=== PATIENT | female | born 1985 | race Hispanic/Latino ===

== ENCOUNTER 2017-10-10 23:58 | Emergency (ER) | payer MEDICAID, OTHER ==
[2017-10-11 00:55] LABS: APPEARANCE,URINE Turbid (CLEAR); BILIRUBIN,URINE Negative (NEGATIVE); COLOR,URINE Yellow (YELLOW); GLUCOSE, URINE (UA) Negative (NEGATIVE); HCG,QUAL RESULT NEGATIVE (NEGATIVE); KETONES,URINE Negative (NEGATIVE); LEUKOCYTE ESTERASE ,URINE Large (NEGATIVE); NITRATE,URINE Positive (NEGATIVE); OCCULT BLOOD,URINE Trace (NEGATIVE); PH,URINE 6.5 (5.0-8.0); PROTEIN,URINE Trace (NEGATIVE); UROBILINOGEN,URINE 0.2 mg/dL (0.2-1.0)
[2017-10-11] MEDS ORDERED: ACETAMINOPHEN EXTRA STRENGTH 500 MG TABLET ONE (01:08)
[2017-10-11 01:21] LABS: BACTERIA,URINE Many /HPF (None Seen); RBC,URINE None Seen /HPF (0-1); SQUAMOUS EPITHELIAL CELL,UR None Seen /LPF (0-2); WBC,URINE 26-50 /HPF (0-1)
[2017-10-11] MEDS ORDERED: IBUPROFEN 800 MG TAB ONE (01:28)
[2017-10-11] MEDS ORDERED: SODIUM CHLORIDE 0.9% 1000ML 1,000 ML IV ONE (01:29)
[2017-10-11 02:03] LABS: BASOPHILS % (AUTO) 0.7 % (0.0-5.0); EOSINOPHILS % (AUTO) 0.2 % (0.0-8.0); LYMPHOCYTES % (AUTO) 14.7 % (21.0-51.0); MEAN CORPUSCULAR HEMOGLOBIN 26.2 pg (27.0-33.0); MEAN CORPUSCULAR VOLUME 77.1 fL (79-99); NEUTROPHILS % (AUTO) 77.4 % (40.0-77.0); PLATELET COUNT (AUTO) 305 K/uL (130-400); POTASSIUM 3.6 mmol/L (3.5-5.1); RED BLOOD CELL COUNT(AUTO) 4.02 MIL/uL (4.00-5.50); RED CELL DISTRIBUTION WIDTH 16.1 % (11.0-15.5); WHITE BLOOD COUNT (AUTO) 9.9 K/uL (4.8-10.8)
== END 2017-10-11 04:19 | disposition home or self-care (01) ==
LOC: EDH 23:58
DX: J09.X2 Influenza due to identified novel influenza A virus with other respiratory manifestations (principal); N30.00 Acute cystitis without hematuria; M54.2 Cervicalgia; Z90.49 Acquired absence of other specified parts of digestive tract; Z98.890 Other specified postprocedural states; Z88.8 Allergy status to other drugs, medicaments and biological substances
CPT/HCPCS: 36415; 80048; 81001; 81025; 85025; 87088; 87186; 87804 ×2; 99284; J7030

== ENCOUNTER 2018-09-06 12:49 | Inpatient (IN) | payer MEDICAID, OTHER ==
[~2018-09-06] VITALS: Ht 157.5 cm; Wt 84.1 kg
[2018-09-06] MEDS ORDERED: ONDANSETRON ODT 4 MG TAB ONE (14:21)
[2018-09-06] MEDS ORDERED: ACETAMINOPHEN EXTRA STRENGTH 500 MG TABLET ONE (14:21)
[2018-09-06 14:32] LABS: APPEARANCE,URINE SL CLOUDY (CLEAR); BILIRUBIN,URINE NEGATIVE (NEGATIVE); COLOR,URINE YELLOW (YELLOW); GLUCOSE, URINE (UA) NEGATIVE (NEGATIVE); KETONES,URINE NEGATIVE (NEGATIVE); LEUKOCYTE ESTERASE ,URINE LARGE (NEGATIVE); NITRATE,URINE POSITIVE (NEGATIVE); OCCULT BLOOD,URINE MODERATE (NEGATIVE); PH,URINE 6.5 (5.0-8.0); PROTEIN,URINE TRACE (NEGATIVE); UROBILINOGEN,URINE 0.2 mg/dL (0.2-1.0)
[2018-09-06 14:34] LABS: HCG,QUAL RESULT NEGATIVE (NEGATIVE)
[2018-09-06 14:41] LABS: BACTERIA,URINE Few /HPF (None Seen); MUCUS,URINE Rare LPF (None Seen); SQUAMOUS EPITHELIAL CELL,UR Few /HPF (0-2); WBC,URINE 26-50 /HPF (0-1)
[2018-09-06] MEDS ORDERED: SODIUM CHLORIDE 0.9% 1000ML 3,000 ML IV ONE (14:57)
[2018-09-06] MEDS ORDERED: LEVOFLOXACIN 500 MG/D5W 100 ML 100 ML ONE (14:58)
[2018-09-06 15:01] LABS: BASOPHILS % (AUTO) 0.6 % (0.0-5.0); EOSINOPHILS % (AUTO) 0.8 % (0.0-8.0); LYMPHOCYTES % (AUTO) 9.1 % (21.0-51.0); MEAN CORPUSCULAR HEMOGLOBIN 26.4 pg (27.0-33.0); MEAN CORPUSCULAR HGB CONC 32.4 g/dL (32.0-36.0); MEAN CORPUSCULAR VOLUME 81.5 fL (79-99); MONOCYTES % (AUTO) 6.1 % (3.0-13.0); NEUTROPHILS % (AUTO) 83.4 % (40.0-77.0); PLATELET COUNT (AUTO) 352 K/uL (130-400); RED BLOOD CELL COUNT(AUTO) 4.54 MIL/uL (4.00-5.50); RED CELL DISTRIBUTION WIDTH 15.5 % (11.0-15.5)
[2018-09-06 15:14] LABS: CREATININE 0.9 mg/dL (0.5-1.5); POTASSIUM 4.1 mmol/L (3.5-5.1)
[2018-09-06 15:18] LABS: ALBUMIN 3.5 g/dL (3.5-5.0); BILIRUBIN,TOTAL 0.8 mg/dL (0.2-1.0); TOTAL PROTEIN, SERUM 8.2 g/dL (6.0-8.3)
[2018-09-06] MEDS ORDERED: OSELTAMIVIR PHOSPHATE 75 MG CAP ONE (16:49)
[2018-09-06] MEDS ORDERED: MEROPENEM 1 GM VIAL ONE (17:08)
[2018-09-06] MEDS ORDERED: SODIUM CHLORIDE 0.9% 50 ML IV ONE (17:08)
[2018-09-06] MEDS ORDERED: ONDANSETRON HCL 4 MG/2 ML VIAL IVP PRN (17:30)
[2018-09-06] MEDS ORDERED: SODIUM CHLORIDE 0.9% 1000ML 1,000 ML IV ONE (19:40)
[2018-09-06] MEDS: PHARMACY COMMUNICATION MISC SCH (21:00)
[2018-09-06] MEDS ORDERED: CEFTRIAXONE SODIUM 1 GM IVP SCH ×2 (21:00→22:00)
[2018-09-06] MEDS ORDERED: ACETAMINOPHEN 325 MG TAB ONE (21:35)
[2018-09-07] MEDS ORDERED: ACETAMINOPHEN 325 MG TAB ONE (01:13)
[2018-09-07] MEDS ORDERED: MEROPENEM 1 GM VIAL ONE (01:34)
[2018-09-07] MEDS ORDERED: SODIUM CHLORIDE 0.9% 50 ML IV ONE (01:35)
[2018-09-07 06:13] LABS: BASOPHILS % (AUTO) 0.7 % (0.0-5.0); EOSINOPHILS % (AUTO) 0.3 % (0.0-8.0); HEMATOCRIT 31.9 % (36-48); LYMPHOCYTES % (AUTO) 11.8 % (21.0-51.0); MEAN CORPUSCULAR HEMOGLOBIN 26.7 pg (27.0-33.0); MEAN CORPUSCULAR HGB CONC 32.9 g/dL (32.0-36.0); MEAN CORPUSCULAR VOLUME 81.1 fL (79-99); MONOCYTES % (AUTO) 8.4 % (3.0-13.0); NEUTROPHILS % (AUTO) 78.8 % (40.0-77.0); PLATELET COUNT (AUTO) 283 K/uL (130-400); RED BLOOD CELL COUNT(AUTO) 3.93 MIL/uL (4.00-5.50); RED CELL DISTRIBUTION WIDTH 15.1 % (11.0-15.5); WHITE BLOOD COUNT (AUTO) 11.5 K/uL (4.8-10.8)
[2018-09-07 06:22] LABS: CREATININE 0.9 mg/dL (0.5-1.5); POTASSIUM 3.3 mmol/L (3.5-5.1)
[2018-09-07 06:28] LABS: ALBUMIN 2.8 g/dL (3.5-5.0); BILIRUBIN,TOTAL 0.8 mg/dL (0.2-1.0); MAGNESIUM 1.7 mg/dL (1.80-2.40); TOTAL PROTEIN, SERUM 6.7 g/dL (6.0-8.3)
[2018-09-07] MEDS ORDERED: OSELTAMIVIR PHOSPHATE 75 MG CAP ONE (06:50)
[2018-09-07 08:00] VITALS: BP 149/74
[2018-09-07] MEDS ORDERED: DIATR MEGLU/DIATRIZOATE SODIUM 30 ML BOTTLE ONE (08:03)
[2018-09-07] MEDS: SODIUM CHLORIDE 0.9% 1000ML 1,000 ML IV SCH ×2 (10:03→21:45)
[2018-09-07] MEDS: MEROPENEM 1 GM VIAL IVP SCH ×2 (10:03→16:22)
[2018-09-07] MEDS: OSELTAMIVIR PHOSPHATE 75 MG CAP PO SCH ×2 (10:03→21:45)
[2018-09-07 11:00] VITALS: BP 142/67
[2018-09-07 16:00] VITALS: BP 126/60
[2018-09-07] MEDS: ACETAMINOPHEN 325 MG TAB PO PRN (16:23)
--- NOTE | 2018-09-07 18:18 | NUR ---
CM IA WITH PT, AAOX 3 ENG MAXIMO GONZALEZ OF [facility], KEAGAN HERNANDEZ, EMPLOYED PMD [employer] Addendum: 09/07/18 at 1819 by MATTIE ARMSTRONG RN CM Amended: Links added.
[2018-09-07 20:05] VITALS: BP 128/77
[2018-09-07] MEDS: PHARMACY COMMUNICATION MISC SCH (21:44)
[2018-09-08] VITALS: BP 149/74
[2018-09-08] MEDS: MEROPENEM 1 GM VIAL IVP SCH ×3 (00:29→23:35)
[2018-09-08] MEDS: ACETAMINOPHEN 325 MG TAB PO PRN (00:30)
[2018-09-08] MEDS: PHARMACY COMMUNICATION MISC SCH ×5 (00:33→23:00)
[2018-09-08 04:00] VITALS: BP 111/69
[2018-09-08 05:56] LABS: HEMATOCRIT 31.8 % (36-48); MEAN CORPUSCULAR HEMOGLOBIN 26.9 pg (27.0-33.0); MEAN CORPUSCULAR VOLUME 81.5 fL (79-99); NUCLEATED RED BLOOD CELLS 0.1 % (0.0-0.19); PLATELET COUNT (AUTO) 252 K/uL (130-400); RED BLOOD CELL COUNT(AUTO) 3.91 MIL/uL (4.00-5.50); RED CELL DISTRIBUTION WIDTH 15.1 % (11.0-15.5); WHITE BLOOD COUNT (AUTO) 9.2 K/uL (4.8-10.8)
[2018-09-08 08:00] VITALS: BP 119/73
[2018-09-08 13:32] VITALS: BP 143/71
[2018-09-08] MEDS: OSELTAMIVIR PHOSPHATE 75 MG CAP PO SCH ×2 (14:15→20:44)
[2018-09-08] MEDS: SODIUM CHLORIDE 0.9% 1000ML 1,000 ML IV SCH (14:15)
[2018-09-08 17:50] VITALS: BP 144/85
[2018-09-08 20:10] VITALS: BP 132/84
[2018-09-09] VITALS: BP 103/59
[2018-09-09] MEDS: SODIUM CHLORIDE 0.9% 1000ML 1,000 ML IV SCH ×2 (00:05→12:52)
[2018-09-09 04:00] VITALS: BP 116/67
[2018-09-09] MEDS: PHARMACY COMMUNICATION MISC SCH ×3 (05:00→09:00)
[2018-09-09 08:50] VITALS: BP 116/75
[2018-09-09] MEDS: MEROPENEM 1 GM VIAL IVP SCH ×2 (09:45→16:30)
[2018-09-09] MEDS: OSELTAMIVIR PHOSPHATE 75 MG CAP PO SCH (09:45)
[2018-09-09 12:14] VITALS: BP 127/89
[2018-09-09 17:02] VITALS: BP 127/76
== END 2018-09-09 19:39 | disposition home or self-care (01) | DRG 871 ==
LOC: EDH 12:49 → EDHIP 12:50 → 4BH 09-07 07:35
PROVIDERS: ADMIT Internal Medicine Infectious Disease; ATTEND Internal Medicine Infectious Disease
DX: A41.50 Gram-negative sepsis, unspecified (principal); J11.00 Influenza due to unidentified influenza virus with unspecified type of pneumonia; N13.6 Pyonephrosis; E11.9 Type 2 diabetes mellitus without complications; E66.01 Morbid (severe) obesity due to excess calories; I10 Essential (primary) hypertension; Z87.442 Personal history of urinary calculi; Z90.49 Acquired absence of other specified parts of digestive tract; Z68.33 Body mass index [BMI] 33.0-33.9, adult; Z88.1 Allergy status to other antibiotic agents; Z79.84 Long term (current) use of oral hypoglycemic drugs
CPT/HCPCS: 36415; 71045; 74177; 78700; 80053; 81001; 81025; 83605; 83735; 85025; 85027; 87040; 87804; A4218; A9562; G0378; J1956; J2185; J7030; Q9963

== ENCOUNTER 2019-05-10 09:34 | Emergency (ER) | payer SELFPAY | END 2019-05-10 10:16 | disposition home or self-care (01) | LOC: EDH 09:34 | DX: J00 Acute nasopharyngitis [common cold] (principal); Z88.1 Allergy status to other antibiotic agents | CPT/HCPCS: 99281 ==

== ENCOUNTER 2020-06-14 19:03 | Emergency (ER) | payer OTHER ==
[2020-06-14] MEDS ORDERED: ONDANSETRON HCL 4 MG/2 ML VIAL ONE (20:02)
[2020-06-14] MEDS ORDERED: KETOROLAC TROMETHAMINE 30MG/ML ONE (20:02)
[2020-06-14 20:10] LABS: APPEARANCE,URINE Cloudy (CLEAR); BILIRUBIN,URINE Negative (NEGATIVE); COLOR,URINE Yellow (YELLOW); GLUCOSE, URINE (UA) Negative (NEGATIVE); KETONES,URINE Negative (NEGATIVE); LEUKOCYTE ESTERASE ,URINE Large (NEGATIVE); NITRATE,URINE Negative (NEGATIVE); OCCULT BLOOD,URINE Moderate (NEGATIVE); PH,URINE 5.5 (5.0-8.0); PROTEIN,URINE POS 1+ mg/dL (NEGATIVE)
[2020-06-14 20:11] LABS: BASOPHILS % (AUTO) 0.2 % (0.0-5.0); EOSINOPHILS % (AUTO) 0.8 % (0.0-8.0); HEMATOCRIT 37.2 % (36-48); LYMPHOCYTES % (AUTO) 11.4 % (21.0-51.0); MEAN CORPUSCULAR HEMOGLOBIN 25.6 pg (27.0-33.0); MEAN CORPUSCULAR HGB CONC 30.9 g/dL (32.0-36.0); MEAN CORPUSCULAR VOLUME 82.9 fL (79-99); NEUTROPHILS % (AUTO) 81.3 % (40.0-77.0); PLATELET COUNT (AUTO) 384 K/uL (130-400); RED BLOOD CELL COUNT(AUTO) 4.49 MIL/uL (4.00-5.50); RED CELL DISTRIBUTION WIDTH 16.7 % (11.0-15.5); WHITE BLOOD COUNT (AUTO) 14.4 K/uL (4.8-10.8)
[2020-06-14 20:22] LABS: CREATININE 0.9 mg/dL (0.5-1.5); POTASSIUM 3.3 mmol/L (3.5-5.1)
[2020-06-14 20:26] LABS: HCG,QUAL RESULT NEGATIVE (NEGATIVE)
[2020-06-14 20:27] LABS: ALBUMIN 3.4 g/dL (3.5-5.0); BILIRUBIN,TOTAL 0.2 mg/dL (0.2-1.0)
[2020-06-14 20:33] LABS: BACTERIA,URINE Few /HPF (None Seen); RBC,URINE None Seen /HPF (0-1); WBC,URINE 51-100 /HPF (0-1)
[2020-06-14] MEDS ORDERED: CEFTRIAXONE SODIUM 1 GM ONE (21:06)
[2020-06-14] MEDS ORDERED: SULFAMETHOX-TMP DS 800/160 TAB ONE (21:24)
[2020-06-14] MEDS ORDERED: DEXAMETHASONE SOD PHOSPHATE 10MG/ML 1ML VIAL ONE (21:24)
[2020-06-15] MEDS ORDERED: ONDANSETRON HCL 4 MG/2 ML VIAL ONE (01:11)
== END 2020-06-14 22:05 | disposition home or self-care (01) ==
LOC: EDH 19:03
DX: U07.1 COVID-19 (principal); N39.0 Urinary tract infection, site not specified; M06.9 Rheumatoid arthritis, unspecified
CPT/HCPCS: 36415; 80053; 81001; 81025; 85025; 87077; 87088; 87186; 87426; 87804 ×2; 96374; 96375 ×2; 99284; J0696; J1100; J1885; J2405

== ENCOUNTER 2020-09-21 12:00 | Emergency (ER) | payer OTHER, SELFPAY ==
[2020-09-21] MEDS ORDERED: SODIUM CHLORIDE 0.9% 1000ML 1,000 ML IV ONE (12:24)
[2020-09-21] MEDS ORDERED: KETOROLAC TROMETHAMINE 30MG/ML ONE (12:26)
[2020-09-21] MEDS ORDERED: ONDANSETRON HCL 4 MG/2 ML VIAL ONE (12:26)
[2020-09-21 12:37] LABS: BASOPHILS % (AUTO) 0.4 % (0.0-5.0); EOSINOPHILS % (AUTO) 0.9 % (0.0-8.0); HEMATOCRIT 33.1 % (36-48); LYMPHOCYTES % (AUTO) 19.4 % (21.0-51.0); MEAN CORPUSCULAR HEMOGLOBIN 26.6 pg (27.0-33.0); MEAN CORPUSCULAR HGB CONC 31.4 g/dL (32.0-36.0); MEAN CORPUSCULAR VOLUME 84.7 fL (79-99); MONOCYTES % (AUTO) 7.9 % (3.0-13.0); NEUTROPHILS % (AUTO) 71.1 % (40.0-77.0); PLATELET COUNT (AUTO) 332 K/uL (130-400); RED BLOOD CELL COUNT(AUTO) 3.91 MIL/uL (4.00-5.50); RED CELL DISTRIBUTION WIDTH 17.3 % (11.0-15.5); WHITE BLOOD COUNT (AUTO) 7.8 K/uL (4.8-10.8)
[2020-09-21 12:47] LABS: HCG,QUAL RESULT NEGATIVE (NEGATIVE)
[2020-09-21 12:51] LABS: CREATININE 0.8 mg/dL (0.5-1.5); POTASSIUM 3.6 mmol/L (3.5-5.1)
[2020-09-21 12:56] LABS: ALBUMIN 3.4 g/dL (3.5-5.0); TOTAL PROTEIN, SERUM 8.1 g/dL (6.0-8.3)
[2020-09-21 12:59] LABS: APPEARANCE,URINE CLOUDY (CLEAR); BILIRUBIN,URINE NEGATIVE (NEGATIVE); COLOR,URINE YELLOW (YELLOW); GLUCOSE, URINE (UA) NEGATIVE (NEGATIVE); KETONES,URINE NEGATIVE (NEGATIVE); LEUKOCYTE ESTERASE ,URINE MODERATE (NEGATIVE); NITRATE,URINE POSITIVE (NEGATIVE); OCCULT BLOOD,URINE LARGE (NEGATIVE); PROTEIN,URINE 100 mg/dL (NEGATIVE); UROBILINOGEN,URINE 0.2 mg/dL (0.2-1.0)
[2020-09-21 13:13] LABS: WBC,URINE TNTC /HPF (0-1)
[2020-09-21 13:14] LABS: BACTERIA,URINE Many /HPF (None Seen); SQUAMOUS EPITHELIAL CELL,UR Few /HPF (0-2)
[2020-09-21] MEDS ORDERED: CEFTRIAXONE SODIUM 1 GM ONE (13:21)
[2020-09-21] MEDS ORDERED: PHENAZOPYRIDINE HCL 200 MG TABLET ONE (13:22)
[2020-09-21] MEDS ORDERED: SODIUM CHLORIDE 0.9% 100 ML IV ONE (13:57)
[2020-09-21] MEDS ORDERED: TAMSULOSIN HCL 0.4 MG CAP.ER.24H ONE (15:18)
== END 2020-09-21 15:24 | disposition home or self-care (01) ==
LOC: EDH 12:00
DX: N20.0 Calculus of kidney (principal); N30.90 Cystitis, unspecified without hematuria; M06.9 Rheumatoid arthritis, unspecified; Z98.890 Other specified postprocedural states; Z90.49 Acquired absence of other specified parts of digestive tract; Z88.1 Allergy status to other antibiotic agents
CPT/HCPCS: 36415; 74176; 80053; 81001; 81025; 83690; 84484; 85025; 87077; 87088; 87186; 96361; 96365; 96375; 99284; J0696; J1885; J2405; J7030

== ENCOUNTER 2021-02-09 16:18 | Emergency (ER) | payer OTHER ==
[~2021-02-09] VITALS: Ht 154.9 cm; Wt 117.9 kg
[2021-02-09 16:30] VITALS: BP 126/78
[2021-02-09] MEDS ORDERED: 0.9%NACL 1000ML 1,000 ML IV SCH (16:30)
[2021-02-09] MEDS ORDERED: ONDANSETRON 4MG INJ IVP ONE (16:30)
[2021-02-09 16:56] LABS: MEAN CORPUSCULAR HEMOGLOBIN 27.8 pg (27.0-33.0); MEAN CORPUSCULAR HGB CONC 31.9 g/dL (32.0-36.0); MEAN CORPUSCULAR VOLUME 87.3 fL (79-99); PLATELET COUNT (AUTO) 179 K/uL (130-400); RED BLOOD CELL COUNT(AUTO) 4.24 MIL/uL (4.00-5.50); RED CELL DISTRIBUTION WIDTH 15.2 % (11.0-15.5); WHITE BLOOD COUNT (AUTO) 8.2 K/uL (4.8-10.8)
[2021-02-09] MEDS: 0.9%NACL 1000ML 1,000 ML IV SCH ×2 (17:00→17:06)
[2021-02-09 17:10] LABS: CREATININE 0.9 mg/dL (0.5-1.5); POTASSIUM 3.6 mmol/L (3.5-5.1)
[2021-02-09 17:15] LABS: ALBUMIN 3.4 g/dL (3.5-5.0); BILIRUBIN,TOTAL 0.4 mg/dL (0.2-1.0); TOTAL PROTEIN, SERUM 7.6 g/dL (6.0-8.3)
[2021-02-09 17:40] VITALS: BP 126/84
[2021-02-09 17:45] LABS: BAND NEUTROPHILS % (MANUAL) 1 % (0-2); LYMPHOCYTES % (MANUAL) 11 % (22-44); MONOCYTES % (MANUAL) 7 % (2-9); SEGMENTED NEUTROPHILS % 81 % (40-70)
[2021-02-09 17:46] LABS: MAN.DIFF COMMENT-IMPRESSION MANUAL DIFFERENTIAL
[2021-02-09] MEDS ORDERED: ACETAMINOPHEN 500 MG TABLET ONE (17:55)
[2021-02-09] MEDS ORDERED: ONDA4TAB4 PO (18:30)
== END 2021-02-09 19:44 | disposition home or self-care (01) ==
LOC: EDH 16:18
DX: U07.1 COVID-19 (principal); R11.2 Nausea with vomiting, unspecified; M19.90 Unspecified osteoarthritis, unspecified site; Z79.899 Other long term (current) drug therapy; Z88.1 Allergy status to other antibiotic agents
CPT/HCPCS: 36415; 80053; 85025; 93005; 96361; 96374; 99284; J2405; J7030

== ENCOUNTER 2021-02-10 21:58 | Inpatient (IN) | payer OTHER ==
[~2021-02-10] VITALS: Ht 154.9 cm; Wt 122.9 kg
[~2021-02-10 21:58] MED LIST: ONDA4TAB4 PO
[2021-02-10 22:07] VITALS: BP 104/66
[2021-02-10 22:33] LABS: MEAN CORPUSCULAR HEMOGLOBIN 27.9 pg (27.0-33.0); MEAN CORPUSCULAR HGB CONC 32.4 g/dL (32.0-36.0); PLATELET COUNT (AUTO) 257 K/uL (130-400); RED CELL DISTRIBUTION WIDTH 15.1 % (11.0-15.5); WHITE BLOOD COUNT (AUTO) 4.9 K/uL (4.8-10.8)
[2021-02-10 22:52] LABS: BAND NEUTROPHILS % (MANUAL) 2 % (0-2); LYMPHOCYTES % (MANUAL) 15 % (22-44); MAN.DIFF COMMENT-IMPRESSION MANUAL DIFFERENTIAL; MONOCYTES % (MANUAL) 3 % (2-9); SEGMENTED NEUTROPHILS % 80 % (40-70)
[2021-02-10 22:53] LABS: CREATININE 0.9 mg/dL (0.5-1.5); POTASSIUM 3.4 mmol/L (3.5-5.1)
[2021-02-10 22:54] LABS: ALBUMIN 3.2 g/dL (3.5-5.0); BILIRUBIN,TOTAL 0.4 mg/dL (0.2-1.0); TOTAL PROTEIN, SERUM 7.4 g/dL (6.0-8.3)
[2021-02-10 22:55] LABS: B-TYPE NATRIURETIC PEPTIDE < 5 pg/mL (0-100)
[2021-02-10 23:13] VITALS: BP 113/78
[2021-02-10] MEDS ORDERED: 0.9% NACL 250ML IVPB ONE (23:30)
[2021-02-10] MEDS ORDERED: AZITHROMYCIN 500MG VIAL IVPB ONE (23:30)
[2021-02-10] MEDS ORDERED: DEXAMETHASONE SOD PHOSPHATE 4 MG/ML 1ML VIAL IVP ONE (23:30)
[2021-02-10] MEDS ORDERED: ALBUTEROL INHALER 90MCG/INH IH SCH (23:30)
[2021-02-11] VITALS (10 sets, daily range): BP systolic 100–142; BP diastolic 49–96
[2021-02-11] MEDS: LEVOFLOXACIN 500 MG/D5W 100 ML 100 ML IV SCH ×2 (00:09→23:51)
[2021-02-11] MEDS ORDERED: FAMOTIDINE 20MG VIAL IV ONE (01:00)
[2021-02-11 01:36] LABS: BILIRUBIN,DIRECT 0.1 mg/dL (0.0-0.3); CRP QUANTITATIVE 92.5 mg/L (0.00-9.0)
[2021-02-11] MEDS ORDERED: CEFTRIAXONE 1G VIAL ONE (02:40)
[2021-02-11 06:30] LABS: HEMATOCRIT 34.7 % (36-48); MEAN CORPUSCULAR HEMOGLOBIN 27.4 pg (27.0-33.0); MEAN CORPUSCULAR HGB CONC 32.3 g/dL (32.0-36.0); MEAN CORPUSCULAR VOLUME 84.8 fL (79-99); MONOCYTES % (AUTO) 3.9 % (3.0-13.0); NEUTROPHILS % (AUTO) 86.4 % (40.0-77.0); PLATELET COUNT (AUTO) 242 K/uL (130-400); RED BLOOD CELL COUNT(AUTO) 4.09 MIL/uL (4.00-5.50); RED CELL DISTRIBUTION WIDTH 14.9 % (11.0-15.5); WHITE BLOOD COUNT (AUTO) 4.3 K/uL (4.8-10.8)
[2021-02-11 06:53] LABS: HEMOGLOBIN A1C 5.4 % (4.0-6.0)
[2021-02-11 06:59] LABS: CREATININE 0.8 mg/dL (0.5-1.5); POTASSIUM 3.6 mmol/L (3.5-5.1)
[2021-02-11] MEDS ORDERED: CELE100C97 PO (08:05)
[2021-02-11] MEDS ORDERED: FOLI1 PO (08:05)
[2021-02-11] MEDS ORDERED: METH2.5T6 PO (08:05)
[2021-02-11] MEDS ORDERED: ENOXAPARIN SODIUM 100 MG/1 ML SQ SCH (09:00)
[2021-02-11] MEDS ORDERED: SOLU-MEDROL 40MG VIAL IVP SCH (14:30)
[2021-02-11] MEDS ORDERED: HYDR200T4 PO (15:12)
[2021-02-11] MEDS ORDERED: POTASSIUM CHLORIDE 20MEQ/100ML 100 ML IV PRN ×2 (17:00)
[2021-02-11] MEDS ORDERED: LIDOCAINE HCL-MPF 1% 2ML VIAL IV PRN (17:00)
[2021-02-11] MEDS ORDERED: GLUCAGON 1MG KIT 1 MG ML IM PRN (17:00)
[2021-02-11] MEDS ORDERED: DEXTROSE 50%-WATER 50 ML DISP.SYRIN IV PRN (17:00)
[2021-02-11] MEDS ORDERED: LIDOCAINE HCL-MPF 1% 2ML VIAL IJ PRN (17:00)
[2021-02-11] MEDS ORDERED: MAGNESIUM 2GM PREMIX 50ML 50 ML IV PRN (17:00)
[2021-02-11] MEDS ORDERED: POTASSIUM CHLORIDE 10% ELIXIR 20 MEQ/15 ML UDCUP PO PRN (17:00)
[2021-02-11] MEDS ORDERED: IOHEXOL 350 MG/ML 100ML INFUS..BTL IV ONE (18:11)
[2021-02-11] MEDS ORDERED: TOCILIZUMAB 400MG VIAL 800 MG in 0.9%NACL 100ML 60 ML IV SCH (18:30)
[2021-02-11] MEDS: OSELTAMIVIR PHOSPHATE 75 MG CAP PO SCH (20:10)
[2021-02-11] MEDS: INSULIN HUMULIN R 100 UNIT/ML 3ML SQ SCH (20:11)
[2021-02-11] MEDS: INSULIN GLARGINE 100 UNITS/ML 10 ML VIAL SQ SCH (20:11)
[2021-02-11] MEDS ORDERED: SOLU-MEDROL 125MG VIAL IVP SCH (22:30)
[2021-02-12] VITALS (7 sets, daily range): BP systolic 101–134; BP diastolic 53–68
[2021-02-12 04:19] LABS: ABG BASE EXCESS -0.3 mmol/L (-2.0-3.0); ABG HCO3 23.7 mmol/L (21.0-28.0); ABG OXYGEN SATURATION 97.4 % (95.0-99.0); ABG PCO2 37 mmHg (32-45)
[2021-02-12 04:30] LABS: HEMATOCRIT 34.9 % (36-48); MEAN CORPUSCULAR HEMOGLOBIN 27.8 pg (27.0-33.0); MEAN CORPUSCULAR HGB CONC 31.8 g/dL (32.0-36.0); MEAN CORPUSCULAR VOLUME 87.3 fL (79-99); RED CELL DISTRIBUTION WIDTH 14.8 % (11.0-15.5); WHITE BLOOD COUNT (AUTO) 3.8 K/uL (4.8-10.8)
[2021-02-12 04:43] LABS: BILIRUBIN,TOTAL 0.3 mg/dL (0.2-1.0); CREATININE 0.7 mg/dL (0.5-1.5); CRP QUANTITATIVE 47.6 mg/L (0.00-9.0); POTASSIUM 3.8 mmol/L (3.5-5.1); TOTAL PROTEIN, SERUM 6.9 g/dL (6.0-8.3)
[2021-02-12] MEDS: INSULIN HUMULIN R 100 UNIT/ML 3ML SQ SCH ×4 (05:31→20:32)
[2021-02-12] MEDS: INSULIN GLARGINE 100 UNITS/ML 10 ML VIAL SQ SCH ×2 (05:31→21:10)
[2021-02-12] MEDS: PANTOPRAZOLE 40 MG/VIAL IVP SCH (08:06)
[2021-02-12] MEDS: DEXAMETHASONE SOD PHOSPHATE 4 MG/ML 1ML VIAL IVP SCH (08:06)
[2021-02-12] MEDS: OSELTAMIVIR PHOSPHATE 75 MG CAP PO SCH ×2 (08:06→20:32)
[2021-02-12] MEDS: ENOXAPARIN SODIUM 40 MG/0.4 ML SYRINGE SQ SCH (08:28)
[2021-02-12] MEDS: KCL 20 MEQ ERTAB PO PRN (15:58)
[2021-02-12] MEDS: LEVOFLOXACIN 500 MG/D5W 100 ML 100 ML IV SCH (23:30)
[2021-02-13 04:33] LABS: EOSINOPHILS % (AUTO) 0.2 % (0.0-8.0); HEMATOCRIT 33.6 % (36-48); LYMPHOCYTES % (AUTO) 15.4 % (21.0-51.0); MEAN CORPUSCULAR HEMOGLOBIN 27.3 pg (27.0-33.0); MEAN CORPUSCULAR HGB CONC 31.8 g/dL (32.0-36.0); MEAN CORPUSCULAR VOLUME 85.7 fL (79-99); MONOCYTES % (AUTO) 6.7 % (3.0-13.0); NEUTROPHILS % (AUTO) 76.1 % (40.0-77.0); PLATELET COUNT (AUTO) 284 K/uL (130-400); RED BLOOD CELL COUNT(AUTO) 3.92 MIL/uL (4.00-5.50); RED CELL DISTRIBUTION WIDTH 14.9 % (11.0-15.5); WHITE BLOOD COUNT (AUTO) 4.4 K/uL (4.8-10.8)
[2021-02-13 04:49] VITALS: BP 103/49
[2021-02-13 04:57] LABS: BILIRUBIN,TOTAL 0.2 mg/dL (0.2-1.0); CREATININE 0.8 mg/dL (0.5-1.5); POTASSIUM 3.4 mmol/L (3.5-5.1); TOTAL PROTEIN, SERUM 6.9 g/dL (6.0-8.3)
[2021-02-13] MEDS: INSULIN HUMULIN R 100 UNIT/ML 3ML SQ SCH ×4 (05:51→19:44)
[2021-02-13] MEDS: INSULIN GLARGINE 100 UNITS/ML 10 ML VIAL SQ SCH ×2 (05:51→20:18)
[2021-02-13] MEDS: KCL 20 MEQ ERTAB PO PRN ×2 (06:04→08:07)
[2021-02-13] MEDS: PANTOPRAZOLE 40 MG/VIAL IVP SCH (08:07)
[2021-02-13] MEDS: FOLIC ACID 1 MG TABLET PO SCH (08:07)
[2021-02-13] MEDS: OSELTAMIVIR PHOSPHATE 75 MG CAP PO SCH ×2 (08:07→20:17)
[2021-02-13] MEDS: DEXAMETHASONE SOD PHOSPHATE 4 MG/ML 1ML VIAL IVP SCH (08:08)
[2021-02-13] MEDS: ENOXAPARIN SODIUM 40 MG/0.4 ML SYRINGE SQ SCH (08:08)
[2021-02-13 08:32] VITALS: BP 98/61
[2021-02-13 12:02] VITALS: BP 102/58
[2021-02-13 16:08] VITALS: BP 136/66
[2021-02-13 19:48] VITALS: BP 127/78
[2021-02-13 23:30] VITALS: BP 127/59
[2021-02-14] MEDS: LEVOFLOXACIN 500 MG/D5W 100 ML 100 ML IV SCH ×2 (00:14→22:43)
[2021-02-14 03:49] VITALS: BP 115/71
[2021-02-14 05:52] LABS: BILIRUBIN,TOTAL 0.2 mg/dL (0.2-1.0); CREATININE 0.9 mg/dL (0.5-1.5); POTASSIUM 3.2 mmol/L (3.5-5.1); TOTAL PROTEIN, SERUM 6.8 g/dL (6.0-8.3)
[2021-02-14] MEDS: INSULIN GLARGINE 100 UNITS/ML 10 ML VIAL SQ SCH ×2 (06:02→21:00)
[2021-02-14] MEDS: INSULIN HUMULIN R 100 UNIT/ML 3ML SQ SCH ×4 (06:02→21:00)
[2021-02-14] MEDS: KCL 20 MEQ ERTAB PO PRN ×3 (06:02→10:38)
[2021-02-14 08:44] VITALS: BP 118/70
[2021-02-14] MEDS: ENOXAPARIN SODIUM 40 MG/0.4 ML SYRINGE SQ SCH (09:04)
[2021-02-14] MEDS: DEXAMETHASONE SOD PHOSPHATE 4 MG/ML 1ML VIAL IVP SCH (09:04)
[2021-02-14] MEDS: OSELTAMIVIR PHOSPHATE 75 MG CAP PO SCH ×2 (09:05→21:04)
[2021-02-14] MEDS: PANTOPRAZOLE 40 MG/VIAL IVP SCH (09:05)
[2021-02-14] MEDS: FOLIC ACID 1 MG TABLET PO SCH (09:05)
[2021-02-14 12:39] VITALS: BP 116/86
[2021-02-14 16:42] VITALS: BP 130/78
[2021-02-14] MEDS ORDERED: DEXA6TAB7 PO (18:59)
[2021-02-14] MEDS ORDERED: OSEL75 PO (19:04)
[2021-02-14 19:34] VITALS: BP 96/71
[2021-02-14 23:26] VITALS: BP 121/67
[2021-02-15 03:39] VITALS: BP 97/59
[2021-02-15] MEDS: INSULIN GLARGINE 100 UNITS/ML 10 ML VIAL SQ SCH (05:31)
[2021-02-15] MEDS: INSULIN HUMULIN R 100 UNIT/ML 3ML SQ SCH ×2 (05:31→10:49)
[2021-02-15 07:00] VITALS: BP 132/75
[2021-02-15] MEDS: PANTOPRAZOLE 40 MG/VIAL IVP SCH (08:47)
[2021-02-15] MEDS: OSELTAMIVIR PHOSPHATE 75 MG CAP PO SCH (08:47)
[2021-02-15] MEDS: FOLIC ACID 1 MG TABLET PO SCH (08:48)
[2021-02-15] MEDS: DEXAMETHASONE SOD PHOSPHATE 4 MG/ML 1ML VIAL IVP SCH (08:48)
[2021-02-15] MEDS: ENOXAPARIN SODIUM 40 MG/0.4 ML SYRINGE SQ SCH (08:49)
[2021-02-15 11:00] VITALS: BP 125/78
== END 2021-02-15 16:10 | disposition home or self-care (01) | DRG 177 ==
LOC: EDH 21:58 → EDHIP 21:59 → 2AH 02-11 08:26
PROVIDERS: ADMIT Internal Medicine Infectious Disease; ATTEND Internal Medicine Infectious Disease
PROC: XW033H5 Introduction of Tocilizumab into Peripheral Vein, Percutaneous Approach, New Technology Group 5 (ICD-10-PCS; principal; 2021-02-11)
PROC: 5A0935A Assistance with Respiratory Ventilation, Less than 24 Consecutive Hours, High Flow/Velocity Cannula (ICD-10-PCS; 2021-02-12)
DX: U07.1 COVID-19 (principal); J12.82 Pneumonia due to coronavirus disease 2019; J96.01 Acute respiratory failure with hypoxia; Z68.43 Body mass index [BMI] 50.0-59.9, adult; E66.01 Morbid (severe) obesity due to excess calories; M06.9 Rheumatoid arthritis, unspecified; R79.89 Other specified abnormal findings of blood chemistry; Z90.49 Acquired absence of other specified parts of digestive tract; I10 Essential (primary) hypertension; M19.90 Unspecified osteoarthritis, unspecified site; Z98.891 History of uterine scar from previous surgery; Z98.51 Tubal ligation status
CPT/HCPCS: 36415; 36600; 71045; 71275; 80048; 80053; 82248; 82550; 82728; 82803; 82948; 83036; 83605; 83615; 83735; 83880; 84145; 84484; 85025; 85027; 85378; 85651; 86140; 87040; 87804; 93005; 93970; 94760; C9113; G0378; J0696; J1100; J1650; J1956; J2920; J3490; Q9967

== ENCOUNTER 2021-02-27 10:58 | Emergency (ER) | payer OTHER ==
[~2021-02-27] VITALS: Ht 154.9 cm; Wt 108.9 kg
[~2021-02-27 10:58] MED LIST changes: +CELE100C97 PO; +DEXA6TAB7 PO; +FOLI1 PO; +HYDR200T4 PO; +METH2.5T6 PO; +OSEL75 PO
[2021-02-27 11:13] VITALS: BP 137/86
[2021-02-27 11:42] LABS: BASOPHILS % (AUTO) 0.5 % (0.0-5.0); EOSINOPHILS % (AUTO) 1.6 % (0.0-8.0); LYMPHOCYTES % (AUTO) 28.6 % (21.0-51.0); MEAN CORPUSCULAR HEMOGLOBIN 27.3 pg (27.0-33.0); MEAN CORPUSCULAR HGB CONC 30.9 g/dL (32.0-36.0); MEAN CORPUSCULAR VOLUME 88.6 fL (79-99); MONOCYTES % (AUTO) 7.1 % (3.0-13.0); NEUTROPHILS % (AUTO) 61.5 % (40.0-77.0); PLATELET COUNT (AUTO) 352 K/uL (130-400); RED BLOOD CELL COUNT(AUTO) 3.95 MIL/uL (4.00-5.50); RED CELL DISTRIBUTION WIDTH 17.1 % (11.0-15.5); WHITE BLOOD COUNT (AUTO) 10.1 K/uL (4.8-10.8)
[2021-02-27 11:50] LABS: CREATININE 0.7 mg/dL (0.5-1.5); POTASSIUM 3.8 mmol/L (3.5-5.1)
[2021-02-27 12:01] LABS: ALBUMIN 3.2 g/dL (3.5-5.0); BILIRUBIN,TOTAL 0.5 mg/dL (0.2-1.0); TOTAL PROTEIN, SERUM 6.5 g/dL (6.0-8.3)
[2021-02-27] MEDS ORDERED: LORAZEPAM 1 MG TABLET PO SCH (12:30)
[2021-02-27] MEDS ORDERED: ALBUHFA IH (12:47)
[2021-02-27] MEDS ORDERED: ALPR0.25 PO (12:47)
== END 2021-02-27 13:33 | disposition home or self-care (01) ==
LOC: EDH 10:58
DX: F41.9 Anxiety disorder, unspecified (principal); R06.02 Shortness of breath; Z88.1 Allergy status to other antibiotic agents; Z79.899 Other long term (current) drug therapy; Z79.52 Long term (current) use of systemic steroids; Z79.1 Long term (current) use of non-steroidal anti-inflammatories (NSAID); Z86.16 Personal history of COVID-19; Z90.49 Acquired absence of other specified parts of digestive tract
CPT/HCPCS: 36415; 71045; 80053; 84702; 85025

== ENCOUNTER 2022-02-06 10:43 | Emergency (ER) | payer MEDICAID ==
[~2022-02-06] VITALS: Ht 154.9 cm; Wt 108.9 kg
[~2022-02-06 10:43] MED LIST changes: +ALBUHFA IH; +ALPR0.25 PO
[2022-02-06 10:44] VITALS: BP 138/95
[2022-02-06] MEDS ORDERED: OSEL75 PO (11:58)
[2022-02-06] MEDS ORDERED: AZIT500T2 PO (11:58)
[2022-02-06 12:15] LABS: BASOPHILS % (AUTO) 0.2 % (0.0-5.0); HEMATOCRIT 37.6 % (36-48); LYMPHOCYTES % (AUTO) 4.9 % (21.0-51.0); MEAN CORPUSCULAR HEMOGLOBIN 26.5 pg (27.0-33.0); MEAN CORPUSCULAR HGB CONC 31.4 g/dL (32.0-36.0); MEAN CORPUSCULAR VOLUME 84.3 fL (79-99); MONOCYTES % (AUTO) 5.6 % (3.0-13.0); NEUTROPHILS % (AUTO) 88.1 % (40.0-77.0); PLATELET COUNT (AUTO) 288 K/uL (130-400); RED BLOOD CELL COUNT(AUTO) 4.46 MIL/uL (4.00-5.50); RED CELL DISTRIBUTION WIDTH 18.6 % (11.0-15.5); WHITE BLOOD COUNT (AUTO) 8.6 K/uL (4.8-10.8)
[2022-02-06 12:32] LABS: CREATININE 0.8 mg/dL (0.5-1.5); POTASSIUM 3.8 mmol/L (3.5-5.1)
[2022-02-06 12:36] LABS: ALBUMIN 3.7 g/dL (3.5-5.0); BILIRUBIN,TOTAL 0.4 mg/dL (0.2-1.0); TOTAL PROTEIN, SERUM 7.5 g/dL (6.0-8.3)
== END 2022-02-06 12:39 | disposition home or self-care (01) ==
LOC: EDH 10:43
DX: U07.1 COVID-19 (principal); J10.1 Influenza due to other identified influenza virus with other respiratory manifestations; M19.90 Unspecified osteoarthritis, unspecified site; Z88.1 Allergy status to other antibiotic agents; Z79.899 Other long term (current) drug therapy; Z90.89 Acquired absence of other organs; Z90.49 Acquired absence of other specified parts of digestive tract; Z98.890 Other specified postprocedural states
CPT/HCPCS: 36415; 71045; 80053; 85025; 87635; 87804 ×2; 99284; C9803

== ENCOUNTER 2022-07-29 18:44 | Emergency (ER) | payer OTHER, MEDICAID ==
[~2022-07-29] VITALS: Ht 154.9 cm; Wt 117.9 kg
[~2022-07-29 18:44] MED LIST changes: +AZIT500T2 PO
[2022-07-29 20:13] LABS: BASOPHILS % (AUTO) 0.3 % (0.0-5.0); EOSINOPHILS % (AUTO) 0.9 % (0.0-8.0); HEMATOCRIT 34.7 % (36-48); LYMPHOCYTES % (AUTO) 10.5 % (21.0-51.0); MEAN CORPUSCULAR HGB CONC 32.9 g/dL (32.0-36.0); MEAN CORPUSCULAR VOLUME 85.3 fL (79-99); MONOCYTES % (AUTO) 6.1 % (3.0-13.0); PLATELET COUNT (AUTO) 343 K/uL (130-400); RED BLOOD CELL COUNT(AUTO) 4.07 MIL/uL (4.00-5.50); RED CELL DISTRIBUTION WIDTH 14.6 % (11.0-15.5); WHITE BLOOD COUNT (AUTO) 11.7 K/uL (4.8-10.8)
[2022-07-29 20:21] LABS: CREATININE 0.9 mg/dL (0.5-1.5); POTASSIUM 3.4 mmol/L (3.5-5.1)
[2022-07-29 20:26] LABS: ALBUMIN 3.7 g/dL (3.5-5.0); TOTAL PROTEIN, SERUM 7.6 g/dL (6.0-8.3)
[2022-07-29] MEDS: ORPHENADRINE CITRATE 30 MG/ML ML IVP ONE (20:36)
[2022-07-29] MEDS: 0.9%NACL 1000ML 1,000 ML IV ONE (20:37)
[2022-07-29] MEDS: KETOROLAC 15MG/ML VIAL (15MG/ML) IV ONE (20:37)
[2022-07-29 20:44] LABS: CRP QUANTITATIVE 19.3 mg/L (0.00-9.0); URIC ACID 5.1 mg/dL (2.6-7.2)
[2022-07-29] MEDS: MORPHINE 4 MG SYG IVP ONE ×2 (21:30→22:42)
[2022-07-29] MEDS: ONDANSETRON 4MG INJ IVP ONE (21:38)
[2022-07-29] MEDS: MORPHINE 4 MG SYG ONE (21:50)
[2022-07-29] MEDS: ONDANSETRON 4MG INJ ONE (21:50)
[2022-07-29 23:01] LABS: APPEARANCE,URINE CLOUDY (CLEAR); BILIRUBIN,URINE NEGATIVE (NEGATIVE); COLOR,URINE YELLOW (YELLOW); GLUCOSE, URINE (UA) NEGATIVE (NEGATIVE); KETONES,URINE NEGATIVE (NEGATIVE); LEUKOCYTE ESTERASE ,URINE 500 Leu/uL (NEGATIVE); NITRATE,URINE NEGATIVE (NEGATIVE); OCCULT BLOOD,URINE SMALL (NEGATIVE); PROTEIN,URINE 30 mg/dL (NEGATIVE); UROBILINOGEN,URINE 0.2 mg/dL (0.2-1.0)
[2022-07-29 23:10] VITALS: BP 135/61
[2022-07-29 23:23] LABS: BACTERIA,URINE FEW /HPF (None Seen); MUCUS,URINE FEW LPF (None Seen); RBC,URINE 26-50 /HPF (0-1); SQUAMOUS EPITHELIAL CELL,UR FEW /HPF (0-2); WBC,URINE TNTC /HPF (0-1)
[2022-07-29] MEDS ORDERED: ONDA4TAB10 PO (23:33)
[2022-07-29] MEDS ORDERED: TAMS-1 PO (23:33)
[2022-07-29] MEDS ORDERED: ACET-2079 PO (23:33)
[2022-07-29] MEDS ORDERED: NAPR-1023 PO (23:33)
[2022-07-29] MEDS: TAMSULOSIN HCL 0.4 MG CAP.ER.24H PO SCH (23:55)
== END 2022-07-29 23:34 | disposition home or self-care (01) ==
LOC: EDH 18:44
DX: N20.1 Calculus of ureter (principal); Z90.49 Acquired absence of other specified parts of digestive tract; Z79.52 Long term (current) use of systemic steroids; Z79.899 Other long term (current) drug therapy; Z79.1 Long term (current) use of non-steroidal anti-inflammatories (NSAID); Z88.1 Allergy status to other antibiotic agents
CPT/HCPCS: 99285; 74176; 96374; 96375; 96361; 84550; 80053; 84703; 85025; 85651; 87088; 86140; 81001; 36415; 73502; 96376; J7030; J2405; J2270 ×2; J1885; J2360

== ENCOUNTER 2022-09-27 23:55 | Emergency (ER) | payer MEDICAID ==
[~2022-09-27] VITALS: Ht 154.9 cm; Wt 118.6 kg
[~2022-09-27 23:55] MED LIST changes: +ACET-2079 PO; +NAPR-1023 PO; +ONDA4TAB10 PO; +TAMS-1 PO
[2022-09-28] VITALS: BP 158/98
[2022-09-28 01:20] LABS: APPEARANCE,URINE CLOUDY (CLEAR); BILIRUBIN,URINE NEGATIVE (NEGATIVE); COLOR,URINE YELLOW (YELLOW); GLUCOSE, URINE (UA) NEGATIVE (NEGATIVE); KETONES,URINE NEGATIVE (NEGATIVE); LEUKOCYTE ESTERASE ,URINE 500 Leu/uL (NEGATIVE); NITRATE,URINE NEGATIVE (NEGATIVE); OCCULT BLOOD,URINE SMALL (NEGATIVE); PH,URINE 5.5 (5.0-8.0); PROTEIN,URINE 20 mg/dL (NEGATIVE); UROBILINOGEN,URINE 0.2 mg/dL (0.2-1.0)
[2022-09-28 01:42] LABS: MUCUS,URINE RARE LPF (None Seen); RBC,URINE 26-50 /HPF (0-1); SQUAMOUS EPITHELIAL CELL,UR FEW /HPF (0-2); WBC,URINE TNTC /HPF (0-1)
[2022-09-28 01:48] LABS: BACTERIA,URINE Moderate /HPF (None Seen)
[2022-09-28] MEDS ORDERED: SOLU-MEDROL 125MG VIAL IM ONE (02:00)
[2022-09-28] MEDS ORDERED: SULFAMETHOX-TMP DS 800/160 TAB PO SCH (02:00)
[2022-09-28] MEDS ORDERED: FAMO-136 PO (02:47)
[2022-09-28] MEDS ORDERED: METH4TAB3 PO (02:49)
== END 2022-09-28 02:59 | disposition home or self-care (01) ==
LOC: EDH 23:55
DX: S29.011A Strain of muscle and tendon of front wall of thorax, initial encounter (principal); M94.0 Chondrocostal junction syndrome [Tietze]; Z88.8 Allergy status to other drugs, medicaments and biological substances; Z79.899 Other long term (current) drug therapy; Z86.16 Personal history of COVID-19; Z90.89 Acquired absence of other organs; Z90.49 Acquired absence of other specified parts of digestive tract; X50.0XXA Overexertion from strenuous movement or load, initial encounter; Y93.89 Activity, other specified; Y92.89 Other specified places as the place of occurrence of the external cause; Y99.8 Other external cause status
CPT/HCPCS: 99283; 87077; 87088; 87186; 81001; 96372; J2930

== ENCOUNTER 2023-04-13 11:58 | Emergency (ER) | payer MEDICAID ==
[~2023-04-13] VITALS: Ht 154.9 cm; Wt 117.9 kg
[~2023-04-13 11:58] MED LIST changes: +FAMO-136 PO; -HYDR200T4 PO; +HYDR200T75 PO; +METH4TAB3 PO
[2023-04-13 13:02] VITALS: BP 130/85
[2023-04-13 16:03] VITALS: PULSE 89; RESP 20; O2SAT 99
[2023-04-13 16:38] LABS: RAPID GROUP A STREP negative (NEGATIVE)
[2023-04-13 16:48] LABS: COVID19 (SARS ANTIGEN RAPID) PRESUMPTIVE NEGATIVE (NEGATIVE)
[2023-04-13 16:52] LABS: INFLUENZA TYPE A NEGATIVE FOR TYPE A (NEG); INFLUENZA TYPE B NEGATIVE FOR TYPE B (NEG)
== END 2023-04-13 19:30 | disposition home or self-care (01) ==
LOC: EDH 11:58
DX: B34.9 Viral infection, unspecified (principal); Z88.1 Allergy status to other antibiotic agents; Z90.89 Acquired absence of other organs; Z90.49 Acquired absence of other specified parts of digestive tract; Z79.899 Other long term (current) drug therapy; Z20.822 Contact with and (suspected) exposure to COVID-19
CPT/HCPCS: 87426; 87804; 87880

== ENCOUNTER 2023-08-21 20:24 | Emergency (ER) | payer MEDICAID, OTHER ==
[~2023-08-21] VITALS: Ht 154.9 cm; Wt 113.4 kg
[~2023-08-21 20:24] MED LIST changes: +CELE-146 PO; -CELE100C97 PO
[2023-08-21 20:25] VITALS: BP 154/98; PULSE 110; RESP 20
[2023-08-21 20:46] LABS: RAPID GROUP A STREP negative (NEGATIVE)
[2023-08-21 20:47] LABS: SARS-CoV-2, RNA, NAAT NEGATIVE SARS CoV-2 (NEGATIVE)
[2023-08-21 20:59] LABS: INFLUENZA TYPE A Positive For Type A (NEGATIVE); INFLUENZA TYPE B Positive For Type B (NEGATIVE)
[2023-08-21] MEDS ORDERED: OSEL75 PO (21:17)
== END 2023-08-21 21:31 | disposition home or self-care (01) ==
LOC: EDH 20:24
DX: J10.1 Influenza due to other identified influenza virus with other respiratory manifestations (principal); Z20.822 Contact with and (suspected) exposure to COVID-19; Z90.49 Acquired absence of other specified parts of digestive tract; Z90.89 Acquired absence of other organs; Z98.890 Other specified postprocedural states; Z88.8 Allergy status to other drugs, medicaments and biological substances
CPT/HCPCS: 87635; 87804; 87880

== ENCOUNTER 2023-10-03 18:16 | Emergency (ER) | payer OTHER ==
[~2023-10-03] VITALS: Ht 154.9 cm; Wt 120.2 kg
[2023-10-03 18:35] LABS: APPEARANCE,URINE CLOUDY (CLEAR); BILIRUBIN,URINE NEGATIVE (NEGATIVE); COLOR,URINE LIGHT-YELLOW (YELLOW); GLUCOSE, URINE (UA) NEGATIVE (NEGATIVE); KETONES,URINE NEGATIVE (NEGATIVE); LEUKOCYTE ESTERASE ,URINE 500 Leu/uL (NEGATIVE); NITRATE,URINE NEGATIVE (NEGATIVE); OCCULT BLOOD,URINE SMALL (NEGATIVE); PH,URINE 6.5 (5.0-8.0); PROTEIN,URINE 20 mg/dL (NEGATIVE); UROBILINOGEN,URINE 0.2 mg/dL (0.2-1.0)
[2023-10-03 18:36] LABS: ADD UA MICROSCOPIC YES
[2023-10-03 18:37] LABS: BACTERIA,URINE MOD /HPF (None Seen); MUCUS,URINE RARE LPF (None Seen); RBC,URINE 26-50 /HPF (0-1); SQUAMOUS EPITHELIAL CELL,UR FEW /HPF (0-2); WBC,URINE TNTC /HPF (0-1)
[2023-10-03] MEDS: 0.9%NACL 1000ML 1,000 ML IV ONE (18:52)
[2023-10-03] MEDS: KETOROLAC 30MG VIAL (30MG/ML) IVP ONE (18:52)
[2023-10-03] MEDS: ONDANSETRON 4MG INJ IVP ONE (18:52)
[2023-10-03 19:06] LABS: CREATININE 0.7 mg/dL (0.5-1.5); POTASSIUM 3.8 mmol/L (3.5-5.1)
[2023-10-03 19:11] LABS: ALBUMIN 3.3 g/dL (3.5-5.0); BILIRUBIN,TOTAL 0.2 mg/dL (0.2-1.0); TOTAL PROTEIN, SERUM 7.2 g/dL (6.0-8.3)
[2023-10-03 19:57] LABS: BASOPHILS # (AUTO) 0.07 K/uL (0.00-0.20); EOSINOPHILS # (AUTO) 0.18 K/uL (0.00-0.70); EOSINOPHILS % (AUTO) 2.6 % (0.0-8.0); IMMATURE GRANULOCYTE ABSOLUTE 0.01 K/uL (0-1); LYMPHOCYTES # (AUTO) 1.7 K/uL (1.0-4.8); MEAN CORPUSCULAR HGB CONC 31.2 g/dL (32.0-36.0); MEAN CORPUSCULAR VOLUME 83.3 fL (79-99); MONOCYTES # (AUTO) 0.4 K/uL (0.1-1.0); MONOCYTES % (AUTO) 6.3 % (3.0-13.0); NEUTROPHILS # (AUTO) 4.6 K/uL (1.8-7.7); PLATELET COUNT (AUTO) 354 K/uL (130-400); RED BLOOD CELL COUNT(AUTO) 4.08 MIL/uL (4.00-5.50); RED CELL DISTRIBUTION WIDTH 15.3 % (11.0-15.5)
[2023-10-03] MEDS ORDERED: ONDA4TAB10 PO (20:54)
[2023-10-03] MEDS ORDERED: IBUP-2077 PO (20:54)
[2023-10-03] MEDS ORDERED: PHEN-776 PO (20:54)
[2023-10-03] MEDS ORDERED: AMOX1TAB16 PO (20:54)
[2023-10-03] MEDS: PHENAZOPYRIDINE HCL 200 MG TABLET PO ONE (21:06)
[2023-10-03] MEDS: AMOX/CLAV 875/125MG TAB PO ONE (21:06)
[2023-10-03 21:15] VITALS: BP 112/58; PULSE 89; RESP 18; O2SAT 100
== END 2023-10-03 21:16 | disposition home or self-care (01) ==
LOC: EDH 18:16
DX: N30.01 Acute cystitis with hematuria (principal); Z79.899 Other long term (current) drug therapy; Z98.890 Other specified postprocedural states; Z90.49 Acquired absence of other specified parts of digestive tract; Z88.8 Allergy status to other drugs, medicaments and biological substances
CPT/HCPCS: 99284; 96374; 96361; 96375; 80053; 83690; 85025; 87088; 81001; 81025; 36415; J7030; J2405; J1885

== ENCOUNTER 2023-10-17 18:07 | Emergency (ER) | payer OTHER ==
[~2023-10-17] VITALS: Ht 154.9 cm; Wt 120.2 kg
[~2023-10-17 18:07] MED LIST changes: +AMOX1TAB16 PO; +IBUP-2077 PO; +PHEN-776 PO
[2023-10-17] MEDS: KETOROLAC 60 MG VIAL (30MG/ML) IM ONE (19:19)
[2023-10-17 21:00] VITALS: BP 142/88; PULSE 72; RESP 18; O2SAT 100
== END 2023-10-17 21:01 | disposition home or self-care (01) ==
LOC: EDH 18:07
DX: M77.9 Enthesopathy, unspecified (principal); Z90.49 Acquired absence of other specified parts of digestive tract; Z98.890 Other specified postprocedural states; Z79.899 Other long term (current) drug therapy; Z88.8 Allergy status to other drugs, medicaments and biological substances
CPT/HCPCS: 99283; 73080; 96372; J1885

== ENCOUNTER 2023-11-13 21:43 | Emergency (ER) | payer OTHER ==
[~2023-11-13] VITALS: Ht 154.9 cm; Wt 117.9 kg
[2023-11-13 22:03] LABS: ADD UA MICROSCOPIC YES; APPEARANCE,URINE CLOUDY (CLEAR); BILIRUBIN,URINE NEGATIVE (NEGATIVE); COLOR,URINE YELLOW (YELLOW); GLUCOSE, URINE (UA) NEGATIVE (NEGATIVE); KETONES,URINE NEGATIVE (NEGATIVE); LEUKOCYTE ESTERASE ,URINE 500 Leu/uL (NEGATIVE); NITRATE,URINE NEGATIVE (NEGATIVE); OCCULT BLOOD,URINE LARGE (NEGATIVE); PROTEIN,URINE 50 mg/dL (NEGATIVE); UROBILINOGEN,URINE 0.2 mg/dL (0.2-1.0)
[2023-11-13 22:08] LABS: RAPID GROUP A STREP negative (NEGATIVE)
[2023-11-13 22:10] LABS: MUCUS,URINE RARE LPF (None Seen); NON-SQUAMOUS EPITHELIAL CELL 2 /HPF (0-2); RBC,URINE >100 /HPF (0-1); SQUAMOUS EPITHELIAL CELL,UR RARE /HPF (0-2); UNCLASSIFIED CRYSTAL 4 /HPF (None Seen); WBC CLUMP MOD /HPF (0-1); WBC,URINE TNTC /HPF (0-1)
[2023-11-13 22:17] LABS: SARS-CoV-2, RNA, NAAT NEGATIVE SARS CoV-2 (NEGATIVE)
[2023-11-13 22:22] LABS: INFLUENZA TYPE A Negative For Type A (NEGATIVE)
[2023-11-13 22:24] LABS: INFLUENZA TYPE B Positive For Type B (NEGATIVE)
[2023-11-13] MEDS: ACETAMINOPHEN 500 MG TABLET PO ONE (22:28)
[2023-11-13 22:54] LABS: BASOPHILS # (AUTO) 0.04 K/uL (0.00-0.20); BASOPHILS % (AUTO) 0.4 % (0.0-5.0); EOSINOPHILS # (AUTO) 0.12 K/uL (0.00-0.70); EOSINOPHILS % (AUTO) 1.3 % (0.0-8.0); HEMATOCRIT 33.2 % (36-48); IMMATURE GRANULOCYTE ABSOLUTE 0.02 K/uL (0-1); LYMPHOCYTES # (AUTO) 0.8 K/uL (1.0-4.8); MEAN CORPUSCULAR HEMOGLOBIN 26.3 pg (27.0-33.0); MEAN CORPUSCULAR HGB CONC 31.9 g/dL (32.0-36.0); MEAN CORPUSCULAR VOLUME 82.4 fL (79-99); MONOCYTES # (AUTO) 0.6 K/uL (0.1-1.0); MONOCYTES % (AUTO) 6.8 % (3.0-13.0); NEUTROPHILS # (AUTO) 7.6 K/uL (1.8-7.7); NEUTROPHILS % (AUTO) 82.3 % (40.0-77.0); PLATELET COUNT (AUTO) 351 K/uL (130-400); RED BLOOD CELL COUNT(AUTO) 4.03 MIL/uL (4.00-5.50); RED CELL DISTRIBUTION WIDTH 15.9 % (11.0-15.5); WHITE BLOOD COUNT (AUTO) 9.3 K/uL (4.8-10.8)
[2023-11-13 23:08] LABS: ALBUMIN 3.5 g/dL (3.5-5.0); BILIRUBIN,TOTAL 0.4 mg/dL (0.2-1.0); CREATININE 0.8 mg/dL (0.5-1.0); POTASSIUM 4.3 mmol/L (3.5-5.1); WBC MORPHOLOGY CONSISTENT W/DIFF
[2023-11-13] MEDS: ONDANSETRON 4MG INJ IVP ONE (23:36)
[2023-11-13] MEDS: 0.9%NACL 1000ML 1,000 ML IV ONE (23:36)
[2023-11-13] MEDS: KETOROLAC 15MG/ML VIAL (15MG/ML) IV ONE (23:37)
[2023-11-14 00:23] VITALS: TEMP 100
[2023-11-14] MEDS ORDERED: OSEL75 PO (00:23)
[2023-11-14] MEDS ORDERED: SULF1TAB42 PO (00:23)
[2023-11-14] MEDS ORDERED: ACET-66 PO (00:23)
[2023-11-14] MEDS ORDERED: BROM118S48 PO (00:23)
[2023-11-14] MEDS ORDERED: ONDA-104 PO (00:23)
[2023-11-14 01:10] VITALS: BP 124/84; PULSE 104; RESP 18; O2SAT 98
== END 2023-11-14 01:29 | disposition home or self-care (01) ==
LOC: EDH 21:43
DX: J10.1 Influenza due to other identified influenza virus with other respiratory manifestations (principal); N30.01 Acute cystitis with hematuria; Z20.822 Contact with and (suspected) exposure to COVID-19; Z90.49 Acquired absence of other specified parts of digestive tract; Z79.899 Other long term (current) drug therapy; Z98.890 Other specified postprocedural states
CPT/HCPCS: 99284; 96374; 87635; 96361; 96375; 80053; 85025; 87077; 87088; 87186; 87880; 87804 ×2; 81001; 81025; 36415; J7030; J2405; J1885

== ENCOUNTER 2023-11-16 12:22 | Emergency (ER) | payer OTHER ==
[~2023-11-16] VITALS: Ht 154.9 cm; Wt 117.9 kg
[~2023-11-16 12:22] MED LIST changes: +ACET-66 PO; +BROM118S48 PO; +ONDA-104 PO; +SULF1TAB42 PO
[2023-11-16 13:58] LABS: BASOPHILS # (AUTO) 0.04 K/uL (0.00-0.20); BASOPHILS % (AUTO) 0.8 % (0.0-5.0); EOSINOPHILS # (AUTO) 0.04 K/uL (0.00-0.70); EOSINOPHILS % (AUTO) 0.8 % (0.0-8.0); HEMATOCRIT 35.1 % (36-48); IMMATURE GRANULOCYTE ABSOLUTE 0.03 K/uL (0-1); LYMPHOCYTES % (AUTO) 19.6 % (21.0-51.0); MEAN CORPUSCULAR HEMOGLOBIN 25.7 pg (27.0-33.0); MEAN CORPUSCULAR HGB CONC 31.3 g/dL (32.0-36.0); MONOCYTES # (AUTO) 0.7 K/uL (0.1-1.0); MONOCYTES % (AUTO) 13.8 % (3.0-13.0); NEUTROPHILS # (AUTO) 3.3 K/uL (1.8-7.7); NEUTROPHILS % (AUTO) 64.4 % (40.0-77.0); PLATELET COUNT (AUTO) 290 K/uL (130-400); RED BLOOD CELL COUNT(AUTO) 4.28 MIL/uL (4.00-5.50); RED CELL DISTRIBUTION WIDTH 15.8 % (11.0-15.5); WHITE BLOOD COUNT (AUTO) 5.1 K/uL (4.8-10.8)
[2023-11-16 14:05] VITALS: BP 110/70; PULSE 72; RESP 16; O2SAT 100
[2023-11-16 14:07] LABS: CREATININE 0.9 mg/dL (0.5-1.0); POTASSIUM 3.2 mmol/L (3.5-5.1)
[2023-11-16 14:11] LABS: ALBUMIN 3.2 g/dL (3.5-5.0); BILIRUBIN,TOTAL 0.3 mg/dL (0.2-1.0); TOTAL PROTEIN, SERUM 7.8 g/dL (6.0-8.3)
[2023-11-16 15:09] LABS: APPEARANCE,URINE CLOUDY (CLEAR); BILIRUBIN,URINE NEGATIVE (NEGATIVE); COLOR,URINE YELLOW (YELLOW); GLUCOSE, URINE (UA) NEGATIVE (NEGATIVE); KETONES,URINE NEGATIVE (NEGATIVE); LEUKOCYTE ESTERASE ,URINE 500 Leu/uL (NEGATIVE); NITRATE,URINE NEGATIVE (NEGATIVE); OCCULT BLOOD,URINE SMALL (NEGATIVE); PROTEIN,URINE 100 mg/dL (NEGATIVE); UROBILINOGEN,URINE 0.2 mg/dL (0.2-1.0)
[2023-11-16 15:19] LABS: ADD UA MICROSCOPIC YES
[2023-11-16 15:22] LABS: BACTERIA,URINE RARE /HPF (None Seen); MUCUS,URINE MOD LPF (None Seen); RBC,URINE 26-50 /HPF (0-1); SQUAMOUS EPITHELIAL CELL,UR RARE /HPF (0-2); UNCLASSIFIED CRYSTAL 3 /HPF (None Seen); WBC CLUMP FEW /HPF (0-1); WBC,URINE 26-50 /HPF (0-1)
[2023-11-16 15:26] LABS: HCG,QUALITATIVE URINE NEGATIVE (NEGATIVE)
[2023-11-16] MEDS: POTASSIUM BICARB/CIT AC 25 MEQ TABLET.EFF PO ONE (15:35)
== END 2023-11-16 18:21 | disposition home or self-care (01) ==
LOC: EDH 12:22
DX: N39.0 Urinary tract infection, site not specified (principal); E03.9 Hypothyroidism, unspecified; Z88.1 Allergy status to other antibiotic agents; Z90.89 Acquired absence of other organs; Z90.49 Acquired absence of other specified parts of digestive tract
CPT/HCPCS: 36415; 80053; 81001; 81025; 83690; 85025

== ENCOUNTER 2024-05-05 03:20 | Emergency (ER) | payer OTHER ==
[~2024-05-05] VITALS: Ht 152.4 cm; Wt 113.4 kg
[~2024-05-05 03:20] MED LIST changes: +ONDA-243 PO; -ONDA4TAB10 PO
[2024-05-05 03:21] VITALS: BP 153/94; PULSE 102; RESP 18; TEMP 98.3
[2024-05-05] MEDS: ORPHENADRINE 60MG/2ML IM ONE (03:30)
[2024-05-05] MEDS ORDERED: NAPR-1196 PO (03:40)
[2024-05-05] MEDS ORDERED: METH-662 PO (03:40)
[2024-05-05] MEDS: ketOROlac 30MG VIAL (30MG/ML) IM ONE (03:40)
== END 2024-05-05 03:47 | disposition home or self-care (01) ==
LOC: EDH 03:20
DX: S46.911A Strain of unspecified muscle, fascia and tendon at shoulder and upper arm level, right arm, initial encounter (principal); M19.90 Unspecified osteoarthritis, unspecified site; Z88.1 Allergy status to other antibiotic agents; Z79.899 Other long term (current) drug therapy; Z90.49 Acquired absence of other specified parts of digestive tract; Z98.51 Tubal ligation status; Z98.890 Other specified postprocedural states; X50.0XXA Overexertion from strenuous movement or load, initial encounter; Y93.F2 Activity, caregiving, lifting; Y92.89 Other specified places as the place of occurrence of the external cause; Y99.8 Other external cause status
CPT/HCPCS: 99284; 96372 ×2; J1885; J2360

== ENCOUNTER 2024-05-19 23:51 | Emergency (ER) | payer OTHER ==
[~2024-05-19] VITALS: Ht 152.4 cm; Wt 108.9 kg
[~2024-05-19 23:51] MED LIST changes: +METH-662 PO; +NAPR-1196 PO
[2024-05-20] MEDS: ketOROlac 15MG/ML VIAL (15MG/ML) IM STA (00:09)
[2024-05-20] MEDS: HYDROcodone/APAP 5/325 1 TAB TABLET PO STA (00:09)
[2024-05-20] MEDS: dexaMETHasone SOD PHOSPHATE 4 MG/ML 1ML VIAL IV STA (00:27)
[2024-05-20] MEDS ORDERED: KETO10TA2 PO (01:48)
--- NOTE | 2024-05-20 01:51 | ERN ---
ED Note History of Present Illness Stated Complaint: RT WRIST INJURY Chief Complaint: Wrist Pain/Injury Time Seen by MD: 23:55 Time Seen by Midlevel: 00:03 Dictation: 38-YEAR-OLD FEMALE WITH NO PAST MEDICAL OR SURGICAL HISTORY COMING IN COMPLAINING OF RIGHT WRIST PAIN THAT STARTED AT NOON. PATIENT STATES SHE WAS MOVING A PATIENT AROUND WHEN SHE STARTED WITH THE PAIN. PATIENT STATES SHE HAS TRIED TO TAKE TYLENOL BUT HAS NOT HELPED. Allergies: Coded Allergies: cefazolin (Verified Allergy, Unknown, 05/19/24) Home Meds Active Scripts Naproxen (Naproxen) 250 Mg Tablet, 250 MG PO BID for 7 Days, #14 TAB Prov:RADHA CLOUD MD 05/05/24 Methocarbamol (Robaxin) 750 Mg Tab, 500 MG PO BID for 5 Days, #10 TAB Prov:RADHA CLOUD MD 05/05/24 Sulfamethoxazole/Trimethoprim (Bactrim Ds Tablet) 800 Mg-160 Mg Tablet, 1 TAB PO BID for 10 Days, #20 TAB Prov:DARLEEN RIOS 11/14/23 Oseltamivir Phosphate (Tamiflu) 75 Mg Cap, 75 MG PO BID for 5 Days, #10 CAP Prov:DARLEEN RIOS 11/14/23 Ondansetron HCl (Ondansetron HCl) 4 Mg Tablet, 4 MG PO TID for 3 Days, #9 TAB Prov:DARLEEN RIOS 11/14/23 D-Methorphan Hb/P-Epd HCl/Bpm (Bromfed Dm Cough Syrup) 2 Mg-30 Mg-10 Mg/5 Ml Syrup, 5 ML PO TID for 5 Days, #100 ML Prov:DARLEEN RIOS 11/14/23 Acetaminophen (Acetaminophen) 500 Mg Tablet, 500 MG PO Q4PRN for 5 Days, #15 TAB Prov:DARLEEN RIOS 11/14/23 Ibuprofen (Ibuprofen 800 mg Tab) 800 Mg Tab, 800 MG PO Q8H PRN for fever or pain, #30 TAB 0 Refills Prov:TRENA BALL NP 10/17/23 Ondansetron (Ondansetron Odt) 4 Mg Tab.rapdis, 4 MG PO Q6HPRN for N/V, #15 TAB Prov:TRENA BALL LASTING MACHINE OPERATOR HAND METHOD 10/03/23 Phenazopyridine HCl (Pyridium) 200 Mg Tablet, 200 MG PO TID for 5 Days, #15 TAB Prov:TRENA BALL LASTING MACHINE OPERATOR HAND METHOD 10/03/23 Ibuprofen (Ibuprofen 800 mg Tab) 800 Mg Tab, 800 MG PO Q8H PRN for fever or pain, #30 TAB 0 Refills Prov:TRENA BALL LASTING MACHINE OPERATOR HAND METHOD 10/03/23 Amoxicillin/Potassium Clav (Amox Tr-K Clv 875-125 mg Tab) 875 Mg-125 Mg Tablet, 1 EACH PO BID for 5 Days, #10 TAB 0 Refills Prov:TRENA BALL LASTING MACHINE OPERATOR HAND METHOD 10/03/23 Oseltamivir Phosphate (Tamiflu) 75 Mg Cap, 75 MG PO BID for 5 Days, #10 CAP Prov:YOSI MCCONNELL LASTING MACHINE OPERATOR HAND METHOD 08/21/23 Methylprednisolone (Medrol) 4 Mg Tab.ds.pk, 4 MG PO AD for 6 Days, #1 PACK Prov:MIKI FAJARDO MD 09/28/22 Famotidine (Pepcid) 20 Mg Tablet, 20 MG PO BID for 30 Days, #60 TAB Prov:MIKI FAJARDO MD 09/28/22 Tamsulosin HCl (Flomax) 0.4 Mg Cap.er.24h, 0.4 MG PO DAILY, #10 CAPSULE.DR Prov:[facility] 07/29/22 Ondansetron (Ondansetron Odt) 4 Mg Tab.rapdis, 4 MG PO TID PRN for NAUSEA/VOMITING, #10 TAB Prov:[facility] 07/29/22 Naproxen (Naproxen) 500 Mg Tablet, 500 MG PO BID, #15 TAB Prov:[facility] 07/29/22 Acetaminophen with Codeine (Acetaminophen-Cod #3 Tablet) 1 Each Tablet, 1 TAB PO Q4H PRN for PAIN, #15 TAB Prov:[facility] 07/29/22 Azithromycin (Zithromax Tri-Nabor) 500 Mg Tablet, 500 MG PO DAILY, #3 TAB Prov:ANNE-MARIE GONZALEZ MD 02/06/22 Oseltamivir Phosphate (Tamiflu) 75 Mg Cap, 75 MG PO BID, #10 CAP Prov:ANNE-MARIE GONZALEZ MD 02/06/22 Alprazolam (Xanax) 0.25 Mg Tablet, 0.25 MG PO TID for anxiety, #21 TAB Prov:WILLY ALLEN 02/27/21 Albuterol Sulfate (Ventolin Hfa/Proventil Hfa/Proair Hfa) 90 Mcg/Puff Puff, 2 PUFF IH Q4H, #1 INH Prov:WILLY ALLEN 02/27/21 Oseltamivir Phosphate (Tamiflu) 75 Mg Cap, 75 MG PO DAILY for 3 Days, #3 CAP Prov:MARK BROWN AGAALMA 02/14/21 Dexamethasone (Decadron) 6 Mg Tablet, 6 MG PO DAILY for 10 Days, #10 TAB Prov:MARK BROWN 02/14/21 Ondansetron HCl (Zofran) 4 Mg Tablet, 8 MG PO TIDP PRN for VOMITING, #15 TAB 0 Refills Prov:NETO MCCULLOUGH MD 02/09/21 Reported Medications Hydroxychloroquine Sulfate (Hydroxychloroquine Sulfate) 200 Mg Tablet, 200 MG PO BID, TAB 02/11/21 Folic Acid (Folvite) 1 Mg Tab, 1 MG PO DAILY, TAB 02/11/21 Methotrexate Sodium (Methotrexate) 2.5 Mg Tablet, 2.5 MG PO QWEEK, TAB 02/11/21 Celecoxib (Celecoxib) 100 Mg Capsule, 100 MG PO DAILY, CAP 02/11/21 Past Medical History Past Medical History: Arthritis Additional Past Medical Hx: RA. ESBL Surgical History: Appendectomy, Cholecystectomy, Surgical History Other: C SECTION / BTL Family History: Negative Social History: Lives with family History: Not Applicable LMP: May 06, 2024 : 5 Para: 5 Review of System Dictation CONSTITUTIONAL: NEGATIVE FOR FEVER,CHILLS, AND WEIGHT LOSS EYES: NEGATIVE FOR INJURY, PAIN,REDNESS, AND DISCHARGE ENT: NEGATIVE FOR INJURY,PAIN OR SWELLING CARDIOVASCULAR: NEGATIVE FOR CHEST PAIN, PALPITATIONS, AND EDEMA RESPIRATORY: NEGATIVE FOR SHORTNESS OF BREATH, COUGH, AND WHEEZING, ABDOMEN/GI: NEGATIVE FOR ABDOMINAL PAIN, NAUSEA, VOMITING, DIARRHEA, AND C ONSTIPATION BACK: NEGATIVE FOR INJURY AND PAIN : NEGATIVE FOR INJURY, BLEEDING AND DISCHARGE MS/EXTREMITY: RIGHT WRIST PAIN SKIN: NEGATIVE FOR RASH, AND DISCOLORATION NEURO: NEGATIVE FOR HEADACHE, WEAKNESS, NUMBNESS, TINGLING, AND SEIZURE PSYCH: NEGATIVE FOR SUICIDE IDEATION, HOMICIDAL IDEATION, AND HALLUCINATIONS Review of Systems: was completed Initial Vital Sign VS Vital Signs Date Time Temp Pulse Resp B/P (MAP) Pulse Ox O2 Delivery O2 Flow Rate FiO2 05/19/24 23:52 98.1 77 16 176/101 99 Room Air Physical Exam Dictation GENERAL: AWAKE, ALERT, NAD HEAD/FACE: NORMOCEPHALIC, ATRAUMATIC EYES: PERRL, EOMI, VISION AT BASELINE ENT: ORAL CAVITY CLEAR, TMS CLEAR, NO SIGNS OF INFECTION NECK: TRACHEA MIDLINE, SUPPLE, NO NUCHAL RIGIDITY CARDIOVASCULAR: RRR, NORMAL S1/S2, NO MRGS, NO JVD RESPIRATORY: CTAB, NO RESPIRATORY DISTRESS, NO RALES OR WHEEZES ABDOMEN: SOFT, NON-TENDER, NON-DISTENDED, NORMAL BOWEL SOUNDS, NO GUARDING OR REBOUND. SKIN: WARM, DRY, NORMAL TURGOR, NO RASH MS/EXTREMITY: PULSES EQUAL, NO CYANOSIS, NEUROVASCULAR INTACT, PATIENT COMPLAINS OF PAIN UPON PRESSURE ON THE CARPAL TUNNEL NERVE NO PAIN ON THE LATERAL ASPECT OF EITHER SIDE OF THE WRIST. NEURO: COAX4, GCS 15, STRENGTH 5/5, CN 2-12 INTACT, NORMAL CEREBELLAR EXAM, NORMAL GAIT, PSYCH: NORMAL BEHAVIOR, MOOD, AND AFFECT NORMAL ED Course ED Course Orders Procedure Category Date Status Time Hand 3+Vws Rt RAD 05/19/24 Taken 23:54 Wrist Comp 3+Vws Rt RAD 05/19/24 Taken 23:54 Hydrocodone/Apap PHA 05/19/24 Complete 5/325 ([place] 5/325mg) 23:57 Ketorolac PHA 05/19/24 Complete Tromethamine 15mg/Ml 23:57 Dexamethasone 4mg/Ml PHA 05/20/24 Complete 1ml Vial (Dexametha 00:06 Volar Splint BRISA.ER 05/20/24 In Process 01:39 Morphine 2mg Syg PHA 05/20/24 Transmitted (Morphine 2mg Syg) 01:40 Current Medications Medications (Trade) Dose Ordered Sig/Kena Route PRN Reason Start Time Stop Time Status Last Admin Dose Admin Acetaminophen/ Hydrocodone Bitart (NORco 5/325MG) 1 tab ONCE STAT PO 05/19/24 23:57 05/19/24 23:58 DC 05/20/24 00:09 Dexamethasone Sodium Phosphate (dexaMETHasone 4MG/ML 1ML VIAL) 6 mg ONCE STAT IV 05/20/24 00:06 05/20/24 00:07 DC 05/20/24 00:27 Ketorolac Tromethamine (toRADol) 15 mg ONCE STAT IM 05/19/24 23:57 05/19/24 23:58 DC 05/20/24 00:09 Vital Signs Date Time Temp Pulse Resp B/P (MAP) Pulse Ox O2 Delivery O2 Flow Rate FiO2 05/19/24 23:52 98.1 77 16 176/101 99 Room Air Medical Decision Making MDM MDM: 38-YEAR-OLD FEMALE WITH NO PAST MEDICAL OR SURGICAL HISTORY COMING IN COMPLAINING OF RIGHT WRIST PAIN THAT STARTED AT NOON. PATIENT STATES SHE WAS MOVING A PATIENT AROUND WHEN SHE STARTED WITH THE PAIN. PATIENT STATES SHE HAS TRIED TO TAKE TYLENOL BUT HAS NOT HELPED. AFTER PAIN MEDICATION PATIENT STATES FEELS SLIGHTLY BETTER. WE WILL ADD THOSE OF WORSENING BEFORE DISCHARGE. X-RAYS OF THE HAND AND WRIST SHOWED NO ACUTE ABNORMALITIES, THIS IS MY PERSONAL INTERPRETATION. DIFFERENTIAL DIAGNOSIS: TENDINITIS, CARPAL TUNNEL, WRIST SPRAIN, RATIONALE: TESTS CONSIDERED AND ORDERED SECONDARY TO SHARED DECISION MAKING INCLUDE: PREVIOUS OUTSIDE RECORDS REVIEWED: OLD ER VISITS. RISK OF COMPLICATION AND/OR MORBIDITY OR MORTALITY OF PATIENT MANAGEMENT: NONE MEDICATIONS-PER MEDICATION RECONCILIATION NEED FOR HOSPITALIZATION: PATIENT DOES NOT MEET CRITERIA FOR HOSPITALIZATION. NEED FOR EMERGENCY MAJOR/MINOR SURGERY: NO THERE ARE NO SOCIAL CONCERNS WITH THIS PATIENT. PRESCRIPTION DRUG MANAGEMENT PRESCRIPTIONS WILL INCLUDE SYMPTOMATIC CARE PATIENT'S PRIOR EXTERNAL MEDICAL RECORDS FROM OTHER ER VISITS WERE REVIEWED BY ME INDICATED. PRIOR TESTING AND RESULTS FROM PREVIOUS VISITS WERE REVIEWED. PRIOR TESTS WERE TAKEN INTO ACCOUNT WITH MEDICAL DECISION MAKING AND RESOURCE UTILIZATION, INDEPENDENT HISTORIAN/HISTORIANS WERE USED TO OBTAIN COMPLETE MEDICAL HISTORY. I INDEPENDENTLY INTERPRETED THE TEST THAT WERE PERFORMED, RESULTS WERE REVIEWED BY ME AND CONSIDERED FINDINGS ON RADIOLOGY IF ORDERED. MEDICAL MANAGEMENT AND EXAMINATION INTERPRETATION DISCUSSIONS WERE HAD BY ME WITH OTHER QUALIFIED HEALTHCARE PROFESSIONALS INDICATED FOR THE PATIENT'S CARE. DX & DISP Disposition: Discharge Departure Impression: Primary Impression: Wrist pain Additional Impression: Wrist pain, right Condition: Stable Scripts Ketorolac Tromethamine (Ketorolac Tromethamine) 10 Mg Tablet 10 MG PO TIDP PRN for PAIN for 5 Days, #15 TAB Prov: MARCO HILL LASTING MACHINE OPERATOR HAND METHOD 05/20/24 Additional Instructions: YOU ALREADY HAVE NAPROXEN PRESCRIPTION, DO NOT MIX WITH THE TORADOL. YOU CAN NOT TAKE BOTH AT THE SAME TIME. YOU EITHER OR BUT NOT TOGETHER. YOU CAN ADD TYLENOL TO THESE MEDICATIONS. BUT DO NOT TAKE NAPROXEN AND TORADOL . PLEASE FOLLOW UP WITH YOUR PCP IN 1-2 DAYS. KEEP THE SPLINT ON TO HELP WITH PAIN AND. RETURN TO THE ER IF SYMPTOMS WORSEN. Referrals: MATEUSZ HDEZ (PCP) I have reviewed the case, and I agree with, Diagnosis and Plan MARCO HILL NP May 20, 2024 01:51
[2024-05-20] MEDS: morPHINE 2 MG SYG IM STA (02:38)
--- NOTE | 2024-05-20 02:57 | NUR ---
VOLAR SPLINT APPLIED ORDERED
[2024-05-20 03:13] VITALS: BP 136/70; PULSE 72; RESP 18; TEMP 98; O2SAT 99
--- NOTE | 2024-05-20 08:26 | HMCIMG ---
HAND 3+VWS RT REASON: PAIN, POOR ROM. INJJURY TECHNIQUE: 3 views were obtained. FINDINGS: There is no evidence of fracture or dislocation. There is no joint effusion. The soft tissues appear unremarkable. There is no evidence of a radiopaque foreign body. IMPRESSION: No acute findings.
--- NOTE | 2024-05-20 08:27 | HMCIMG ---
WRIST COMP 3+VWS RT REASON: PAIN, POOR ROM. INJJURY TECHNIQUE: 2 views were obtained. FINDINGS: There is no evidence of fracture or dislocation. There is no joint effusion. The soft tissues appear unremarkable. There is no evidence of a radiopaque foreign body. IMPRESSION: No acute findings.
== END 2024-05-20 03:15 | disposition home or self-care (01) ==
LOC: EDH 23:51
DX: M25.531 Pain in right wrist (principal); M19.90 Unspecified osteoarthritis, unspecified site; Z88.1 Allergy status to other antibiotic agents; Z79.899 Other long term (current) drug therapy; Z90.49 Acquired absence of other specified parts of digestive tract; Z98.51 Tubal ligation status; Z98.890 Other specified postprocedural states; X50.0XXA Overexertion from strenuous movement or load, initial encounter; Y93.F2 Activity, caregiving, lifting; Y92.89 Other specified places as the place of occurrence of the external cause; Y99.8 Other external cause status
CPT/HCPCS: 99284; 73130; 73110; 96374; 29125; 96372 ×2; J1100; J2270; J1885

== ENCOUNTER 2025-02-16 13:40 | Emergency (ER) | payer OTHER ==
[~2025-02-16] VITALS: Ht 154.9 cm; Wt 122.0 kg
[~2025-02-16 13:40] MED LIST changes: +KETO10TA2 PO; -NAPR-1023 PO; +NAPR-1194 PO; -TAMS-1 PO; +TAMS-55 PO
--- NOTE | 2025-02-16 14:01 | ERN ---
General Chief Complaint: Flank Pain Stated Complaint: RIGHT FLANK PAIN X 1 MONTH Time Seen by MD: 13:41 Source: patient History of Present Illness Initial Comments PATIENT IS A 39-YEAR-OLD FEMALE COMING IN COMPLAINING OF RIGHT FLANK PAIN. PATIENT STATES THAT THE PAIN HAS BEEN ONGOING FOR ONE WEEK. SHE ALSO BELIEVES THAT SHE MIGHT HAVE A URINARY TRACT INFECTION THAT SHE HAS BEEN HAVING SOME DISCOMFORT WHEN SHE PEES. Allergies: Coded Allergies: cefazolin (Verified Allergy, Unknown, 05/19/24) Home Meds Active Scripts Ketorolac Tromethamine (Ketorolac Tromethamine) 10 Mg Tablet, 10 MG PO TIDP PRN for PAIN for 5 Days, #15 TAB Prov:MARCO HILL [employer]UDIES PROFESSOR 05/20/24 Naproxen (Naproxen) 250 Mg Tablet, 250 MG PO BID for 7 Days, #14 TAB Prov:RADHA CLOUD MD 05/05/24 Methocarbamol (Robaxin) 750 Mg Tab, 500 MG PO BID for 5 Days, #10 TAB Prov:RADHA CLOUD MD 05/05/24 Sulfamethoxazole/Trimethoprim (Bactrim Ds Tablet) 800 Mg-160 Mg Tablet, 1 TAB PO BID for 10 Days, #20 TAB Prov:DARLEEN RIOS 11/14/23 Oseltamivir Phosphate (Tamiflu) 75 Mg Cap, 75 MG PO BID for 5 Days, #10 CAP Prov:DARLEEN RIOS 11/14/23 Ondansetron HCl (Ondansetron HCl) 4 Mg Tablet, 4 MG PO TID for 3 Days, #9 TAB Prov:ADRLEEN RIOS 11/14/23 D-Methorphan Hb/P-Epd HCl/Bpm (Bromfed Dm Cough Syrup) 2 Mg-30 Mg-10 Mg/5 Ml Syrup, 5 ML PO TID for 5 Days, #100 ML Prov:DARLEEN RIOS 11/14/23 Acetaminophen (Acetaminophen) 500 Mg Tablet, 500 MG PO Q4PRN for 5 Days, #15 TAB Prov:DARLEEN RIOS 11/14/23 Ibuprofen (Ibuprofen 800 mg Tab) 800 Mg Tab, 800 MG PO Q8H PRN for fever or pain, #30 TAB 0 Refills Prov:TRENA BALL [employer]UDIES PROFESSOR 10/17/23 Ondansetron (Ondansetron Odt) 4 Mg Tab.rapdis, 4 MG PO Q6HPRN for N/V, #15 TAB Prov:TRENA BALL [employer] PROFESSOR 10/03/23 Phenazopyridine HCl (Pyridium) 200 Mg Tablet, 200 MG PO TID for 5 Days, #15 TAB Prov:TRENA BALL [employer] PROFESSOR 10/03/23 Ibuprofen (Ibuprofen 800 mg Tab) 800 Mg Tab, 800 MG PO Q8H PRN for fever or pain, #30 TAB 0 Refills Prov:TRENA BALL [employer]UD[employer] PROFESSOR 10/03/23 Amoxicillin/Potassium Clav (Amox Tr-K Clv 875-125 mg Tab) 875 Mg-125 Mg Tablet, 1 EACH PO BID for 5 Days, #10 TAB 0 Refills Prov:TRENA BALL [employer] PROFESSOR 10/03/23 Oseltamivir Phosphate (Tamiflu) 75 Mg Cap, 75 MG PO BID for 5 Days, #10 CAP Prov:YOSI MCCONNELL NP 08/21/23 Methylprednisolone (Medrol) 4 Mg Tab.ds.pk, 4 MG PO AD for 6 Days, #1 PACK Prov:MIKI FAJARDO MD 09/28/22 Famotidine (Pepcid) 20 Mg Tablet, 20 MG PO BID for 30 Days, #60 TAB Prov:MIKI FAJARDO MD 09/28/22 Tamsulosin HCl (Flomax) 0.4 Mg Cap.er.24h, 0.4 MG PO DAILY, #10 CAPSULE.DR Prov:HERIBERTO ROMO 07/29/22 Ondansetron (Ondansetron Odt) 4 Mg Tab.rapdis, 4 MG PO TID PRN for NAUSEA/VOMITING, #10 TAB Prov:HERIBERTO ROMO 07/29/22 Naproxen (Naproxen) 500 Mg Tablet, 500 MG PO BID, #15 TAB Prov:HERIBERTO ROMO 07/29/22 Acetaminophen with Codeine (Acetaminophen-Cod #3 Tablet) 1 Each Tablet, 1 TAB PO Q4H PRN for PAIN, #15 TAB Prov:HERIBERTO ROMO 07/29/22 Azithromycin (Zithromax Tri-Nabor) 500 Mg Tablet, 500 MG PO DAILY, #3 TAB Prov:ANNE-MARIE GONZALEZ MD 02/06/22 Oseltamivir Phosphate (Tamiflu) 75 Mg Cap, 75 MG PO BID, #10 CAP Prov:ANNE-MARIE GONZALEZ MD 02/06/22 Alprazolam (Xanax) 0.25 Mg Tablet, 0.25 MG PO TID for anxiety, #21 TAB Prov:WILLY ALLEN 02/27/21 Albuterol Sulfate (Ventolin Hfa/Proventil Hfa/Proair Hfa) 90 Mcg/Puff Puff, 2 PUFF IH Q4H, #1 INH Prov:WILLY ALLEN 02/27/21 Oseltamivir Phosphate (Tamiflu) 75 Mg Cap, 75 MG PO DAILY for 3 Days, #3 CAP Prov:MARK BROWN [employer] STUDIES PROFESSOR 02/14/21 Dexamethasone (Decadron) 6 Mg Tablet, 6 MG PO DAILY for 10 Days, #10 TAB Prov:MARK BROWN [employer] STUDIES PROFESSOR 02/14/21 Ondansetron HCl (Zofran) 4 Mg Tablet, 8 MG PO TIDP PRN for VOMITING, #15 TAB 0 Refills Prov:NETO MCCULLOUGH MD 02/09/21 Reported Medications Hydroxychloroquine Sulfate (Hydroxychloroquine Sulfate) 200 Mg Tablet, 200 MG PO BID, TAB 02/11/21 Folic Acid (Folvite) 1 Mg Tab, 1 MG PO DAILY, TAB 02/11/21 Methotrexate Sodium (Methotrexate) 2.5 Mg Tablet, 2.5 MG PO QWEEK, TAB 02/11/21 Celecoxib (Celecoxib) 100 Mg Capsule, 100 MG PO DAILY, CAP 02/11/21 Past Medical History Past Medical History: UTI, Other Medical History Other: RA Past Surgical History: Appendectomy, Cholecystectomy, Surgical History Other: C SECTION / BTL Family History Family History: Negative Social History Social History: Lives with family Female( History) History: Not Applicable LMP: Feb 09, 2025 : 5 Para: 5 ROS Dictation CONSTITUTIONAL: NO CHILLS, NO FEVER, NO WEAKNESS, NO DIAPHORESIS, NO MALAISE. HEAD/FACE: NO SIGNS OF TRAUMA. EENT: NO EYE PAIN, NO BLURRED VISION, NO TEARING, NO DOUBLE VISION, NO EAR PAIN, NO EAR DISCHARGE, NO NOSE PAIN, NO NASAL CONGESTION, NO THROAT PAIN, NO THROAT SWELLING, NO MOUTH PAIN. RESPIRATORY: NO COUGH, NO ORTHOPNEA, NO SOB, NO STRIDOR, NO WHEEZING. CARDIOVASCULAR: NO CHEST PAIN, NO EDEMA, NO PALPITATIONS, NO SYNCOPE. GASTROINTESTINAL/ABDOMINAL: ABDOMINAL PAIN, NO CONSTIPATION, NO DIARRHEA, NO NAUSEA, NO VOMITING. GENITOURINARY: NO ABNORMAL DISCHARGE, DYSURIA, NO FREQUENT URINATION, NO HEMATURIA. NO COMPLAINTS OF PAIN IN THE GENITALS. MUSCULOSKELETAL: NO BACK PAIN, NO GOUT, NO JOINT PAIN, NO JOINT SWELLING, NO MUSCLE PAIN, NO MUSCLE STIFFNESS, NO NECK PAIN. INTEGUMENTARY: NO CHANGE IN COLOR, NO CHANGE IN HAIR/NAILS, NO DRYNESS, NO LESION, NO LUMPS, NO RASH. NEUROLOGICAL/PSYCH: NO ANXIETY, NOT DEPRESSED, NO EMOTIONAL PROBLEM, NO HEADACHE, NO NUMBNESS, NO PRE-EXISTING DEFICIT, NO HISTORY OF SEIZURES, NO TREMORS, NO WEAKNESS. HEMATOLOGIC/LYMPHATIC: NOT ANEMIC, NO HISTORY OF BLOOD CLOTS, NO APPARENT BLEEDING, NO BRUISING, GLANDS NOT SWOLLEN. ALL SYSTEMS NEGATIVE, EXCEPT NOTED. Physical Exam Physical Exam Dictation VITAL SIGNS: REVIEWED. GENERAL APPEARANCE: ALERT, ORIENTED X3, NO ACUTE DISTRESS, OBESE. HEAD AND FACE: NON-TRAUMATIC. EYES: PERRL, PINK CONJUNCTIVAS, EYELID NO TRAUMA, ANTERIOR CHAMBER CLEAR. EARS: PINNAS INTACT AND NO SIGNS OF TRAUMA OR ERYTHEMA. EAR CANALS CLEAR AND NO DISCHARGE. TMS NO ERYTHEMA. NOSE: NO DISCHARGE, NO BLEEDING. OROPHARYNX: MOUTH NORMAL, TEETH NO CARIES, TONGUE PINK. PHARYNX CLEAR, NO ERYTHEMA. TONSILS NO EXUDATES, NO ABSCESSES NOTED. MUCOUS MEMBRANE MOIST. NECK: SUPPLE, NON-TENDER, NO THYROMEGALY, NO MASSES, NO JVD, NO BRUITS. BREAST: DEFERRED. CHEST: NO TENDERNESS, NO CREPITUS, NO PARADOXICAL MOVEMENT, NO RETRACTIONS. LUNGS: CLEAR, WELL-VENTILATED, SYMMETRIC, NO RALES, NO WHEEZING, NO RHONCHI, NO STRIDOR, GOOD BREATH SOUNDS BILATERALLY. HEART: REGULAR RATE, REGULAR RHYTHM, NO MURMUR, NO GALLOPS. VASCULAR: NO PERIPHERAL EDEMA. ABDOMEN: SOFT, POSITIVE BOWEL SOUNDS, NONDISTENDED, NO GUARDING, NONTENDER, NO REBOUND, NO MASSES NO HEPATOMEGALY, NO SPLENOMEGALY, NO KING'S SIGN, NO HERNIAS. RECTAL: DEFERRED. GENITAL: DEFERRED. NEUROLOGICAL: NORMAL SPEECH, GROSS MOTOR FUNCTION INTACT, GROSS SENSORY FUNCTION INTACT. MUSCULOSKELETAL: NECK NONTENDER, FULL RANGE OF MOTION, BACK NONTENDER, FULL RANGE OF MOTION. EXTREMITIES: NONTENDER, FULL RANGE OF MOTION. SKIN: COLOR PINK, DRY, NO TURGOR, NO RASH, NO LACERATIONS, NO ABRASIONS, NO CONTUSIONS. LYMPHATICS: DEFERRED. Results Laboratory and Microbiology Lab and Micro Result Laboratory Tests Test 02/16/25 13:50 02/16/25 13:54 Urine Color LIGHT-ORANGE (YELLOW) Urine Appearance TURBID (CLEAR) Urine pH 6.5 (5.0-8.0) Urine Specific [place] 1.013 (1.001-1.031) Urine Protein 100 mg/dL (NEGATIVE) H Urine Glucose (UA) NEGATIVE mg/dL (NEGATIVE) Urine Ketones NEGATIVE mg/dL (NEGATIVE) Urine Occult Blood MODERATE (NEGATIVE) H Urine Nitrate NEGATIVE (NEGATIVE) Urine Bilirubin NEGATIVE mg/dL (NEGATIVE) Urine Urobilinogen 0.2 mg/dL (0.2-1.0) Urine Leukocyte Esterase 500 Eliu/uL (NEGATIVE) H Urine RBC 51-100 /HPF (0-1) H Urine WBC TNTC /HPF (0-1) H Urine WBC Clumps (Auto) MANY /HPF (0-1) Urine Squamous Epithelial Cells FEW /HPF (0-2) Urine Bacteria Rare /HPF (None Seen) Urine HCG, Qualitative NEGATIVE (NEGATIVE) White Blood Count 6.9 K/uL (4.8-10.8) Red Blood Count 4.25 MIL/uL (4.00-5.50) Hemoglobin 11.3 g/dL (12.0-16.0) L Hematocrit 35.8 % (36-48) L Mean Corpuscular Volume 84.2 fL (79-99) Mean Corpuscular Hemoglobin 26.6 pg (27.0-33.0) L Mean Corpuscular Hemoglobin Concent 31.6 g/dL (32.0-36.0) L Red Cell Distribution Width 15.5 % (11.0-15.5) Platelet Count 392 K/uL (130-400) Mean Platelet Volume 9.5 fL (7.5-10.5) Immature Granulocyte % (Auto) 0.3 % (0-1) Neutrophils (%) (Auto) 72.7 % (40.0-77.0) Lymphocytes (%) (Auto) 15.3 % (21.0-51.0) L Monocytes (%) (Auto) 7.4 % (3.0-13.0) Eosinophils (%) (Auto) 3.9 % (0.0-8.0) Basophils (%) (Auto) 0.4 % (0.0-5.0) Neutrophils # (Auto) 5.0 K/uL (1.8-7.7) Lymphocytes # (Auto) 1.1 K/uL (1.0-4.8) Monocytes # (Auto) 0.5 K/uL (0.1-1.0) Eosinophils # (Auto) 0.27 K/uL (0.00-0.70) Basophils # (Auto) 0.03 K/uL (0.00-0.20) Absolute Immature Granulocyte (auto 0.02 K/uL (0-1) Nucleated Red Blood Cells 0.0 % (0.0-0.19) Sodium Level 141 mmol/L (136-145) Potassium Level 3.9 mmol/L (3.5-5.1) Chloride Level 105 mmol/L (101-111) Carbon Dioxide Level 28 mmol/L (21-32) Blood Urea Nitrogen 10 mg/dL (7-18) Creatinine 0.7 mg/dL (0.5-1.0) Glomerular Filtration Rate Calc 113 mL/min (>90) Random Glucose 89 mg/dL (70-105) Total Calcium 8.7 mg/dL (8.5-10.1) Labs Reviewed?: Yes EKG/XRAY/US/CT/MRI CT Scan Comment [address] [address] IMAGING REPORT Signed PATIENT: MARY DOHERTY MR#: [id number] : 1985 SEX: F AGE: 39 LOCATION: [facility] ORDER [id number] STATUS: REG ER REPORT#: [id number] SERVICE [id number] REASON: RIGHT FLANK PAIN ORDERING PHYSICIAN: RADHA CLOUD MD PROCEDURE: ABD PEL WO - CT ABDOMEN/PELVIS W/O CONTRAST EXAM: CT Abdomen and Pelvis Without IV contrast CLINICAL HISTORY: RIGHT FLANK PAIN TECHNIQUE: Axial computed tomography images of the abdomen and pelvis without intravenous contrast. CONTRAST: No IV contrast. COMPARISON: None provided. CT abdomen and pelvis without contrast 07/29/2022 FINDINGS: LUNG BASES: The lung bases appear clear. No pleural effusions are seen. LIVER: The contours of the liver are smooth. The liver is normal in size. There is small 4 mm dystrophic calcification within the right lobe of the liver. Unchanged GALLBLADDER AND BILE DUCTS: The gallbladder surgically absent.. No biliary ductal dilatation is evident. PANCREAS: Unremarkable. SPLEEN: Unremarkable. ADRENAL GLANDS: Unremarkable. KIDNEYS, URETERS, AND BLADDER: No significant change Staghorn calculus right kidney with marked right renal parenchymal atrophy and right-sided hydronephrosis versus multiple right renal cysts 1 mm nonobstructing renal stone within the intrapolar region of the left kidney. No left-sided hydronephrosis or perinephric abnormality. The course and caliber of the left ureter is normal. Unchanged 3 mm distal right ureteral stone STOMACH AND BOWEL: Unremarkable appearance of the stomach and bowel. No evidence of bowel obstruction. No evidence suggesting enteritis or colitis. APPENDIX: The appendix is not clearly visible. There are no secondary signs of acute appendicitis PERITONEUM: No free fluid. No free air. LYMPH NODES: No lymphadenopathy is evident. REPRODUCTIVE: Unremarkable as visualized. Unchanged left adnexal small cystic structure VASCULATURE: No evidence of abdominal aortic aneurysm. BONES: No aggressive appearing osseous lesion. No acute osseous pathology evident. IMPRESSION: 1. Unchanged right staghorn calculus with marked right renal parenchymal atrophy and hydronephrosis versus multiple renal cysts 2. Unchanged 3 mm distal right ureteral stone 3. 1 mm nonobstructing left renal stone, new compared with the prior exam. 4. Status post cholecystectomy 5. 4 mm right hepatic calcification 6. Unchanged left adnexal cyst /[place] DICTATED BY: TABATHA NARANJO MD DATE: 02/16/251707 ELECTRONICALLY SIGNED BY: TABATHA NARANJO MD DATE: 02/16/251707 MDM MDM: DIFFERENTIAL DIAGNOSIS: UTI, staghorn calculi, history of staghorn calculi RATIONALE: TESTS CONSIDERED AND ORDERED SECONDARY TO SHARED DECISION MAKING INCLUDE: PREVIOUS OUTSIDE RECORDS REVIEWED: OLD ER VISITS. RISK OF COMPLICATION AND/OR MORBIDITY OR MORTALITY OF PATIENT MANAGEMENT: NONE MEDICATIONS-PER MEDICATION RECONCILIATION NEED FOR HOSPITALIZATION: PATIENT DOES NOT MEET CRITERIA FOR HOSPITALIZATION. Patient is a 30-year-old female coming in complaining of right flank pain. Patient has a extensive history of staghorn calculi I advised her appropriate follow up with the urologist as indicated in the past. ED Course Orders Procedure Category Date Status Time Cbc With Differential LAB 02/16/25 Complete 13:43 Basic Metabolic Panel LAB 02/16/25 Complete 13:43 Urinalysis LAB 02/16/25 Complete W/Microscopic 13:43 Culture Urine SHAHAB 02/16/25 In Process 14:11 Ketorolac PHA 02/16/25 Complete Tromethamine 15mg/Ml 15:00 ,Urine Test LAB 02/16/25 Complete 14:58 Ct Abdomen/Pelvis W/O CT 02/16/25 Resulted Contrast 14:58 Levofloxacin 500 PHA 02/16/25 In Process Mg/D5w 100 Ml 15:32 Current Medications Medications (Trade) Dose Ordered Sig/Kena Route PRN Reason Start Time Stop Time Status Last Admin Dose Admin Ketorolac Tromethamine (toRADol) 15 mg ONCE ONCE IV 02/16/25 15:00 02/16/25 15:01 DC 02/16/25 14:41 Levofloxacin/ Dextrose 100 ml @ 100 mls/hr Q24H STAT IV 02/16/25 15:32 02/16/25 16:31 02/16/25 15:47 Vital Signs Date Time Temp Pulse Resp B/P (MAP) Pulse Ox O2 Delivery O2 Flow Rate FiO2 02/16/25 13:42 98.1 101 20 142/81 99 0 DX & DISP Disposition: Discharge Departure Impression: Primary Impression: History of uric acid staghorn calculus Additional Impression: UTI (urinary tract infection) Condition: Stable Additional Instructions: FOLLOW-UP WITH PRIMARY CARE PROVIDER IN 1 TO 2 DAYS. TAKE MEDICATIONS DIRECTED HERE IN THE EMERGENCY ROOM. OKAY TO CONTINUE HOME MEDICATIONS UNLESS OTHERWISE DISCUSSED DURING YOUR VISIT IN THE EMERGENCY ROOM TODAY. RETURN TO YOUR NEAREST EMERGENCY ROOM IF SYMPTOMS WORSEN OR IF THERE IS NO IMPROVEMENT. CALL 911 IF YOU NEED IMMEDIATE ASSISTANCE. TAKE TYLENOL [id number] NEEDED AND IF NO CONTRAINDICATIONS ARE PRESENT. INCREASE ORAL HYDRATION. A WOUND CULTURE OR URINE CULTURE WAS ORDERED HERE IN THE EMERGENCY ROOM DEPARTMENT PLEASE FOLLOW-UP WITH PRIMARY CARE PROVIDER AND ADVISE THEM TO GET REPORTS FROM OUR FACILITY. IF YOU HAD ANY KARISSA WRAP/SPLINTS THAT WERE APPLIED HERE, PLEASE DO NOT REMOVE THEM UNTIL YOU SEE YOUR PRIMARY CARE OR SPECIALTY. Referrals: Referrals: MATEUSZ HDEZ (PCP) MERYL DIAZ MD Time of Disposition: 16:21 RADHA CLOUD MD Feb 16, 2025 14:01
[2025-02-16 14:06] LABS: IMMATURE GRANULOCYTE ABSOLUTE 0.02 K/uL (0-1); NUCLEATED RED BLOOD CELLS 0.0 % (0.0-0.19); PLATELET COUNT (AUTO) 392 K/uL (130-400); RED BLOOD CELL COUNT(AUTO) 4.25 MIL/uL (4.00-5.50); RED CELL DISTRIBUTION WIDTH 15.5 % (11.0-15.5); WHITE BLOOD COUNT (AUTO) 6.9 K/uL (4.8-10.8)
[2025-02-16 14:08] LABS: APPEARANCE,URINE TURBID (CLEAR); GLUCOSE, URINE (UA) NEGATIVE (NEGATIVE); LEUKOCYTE ESTERASE ,URINE 500 Leu/uL (NEGATIVE); NITRATE,URINE NEGATIVE (NEGATIVE); OCCULT BLOOD,URINE MODERATE (NEGATIVE)
[2025-02-16 14:13] LABS: CREATININE 0.7 mg/dL (0.5-1.0); GLOMERULAR FILTR. RATE CALC 113.0 mL/min (>90); GLUCOSE,RANDOM 89.0 mg/dL (70-105); SODIUM SERUM 141.0 mmol/L (136-145); UREA NITROGEN, BLOOD 10.0 mg/dL (7-18)
[2025-02-16 14:14] LABS: SQUAMOUS EPITHELIAL CELL,UR FEW /HPF (0-2); WBC CLUMP MANY /HPF (0-1)
--- NOTE | 2025-02-16 16:09 | HMCIMG ---
EXAM: CT Abdomen and Pelvis Without IV contrast CLINICAL HISTORY: RIGHT FLANK PAIN TECHNIQUE: Axial computed tomography images of the abdomen and pelvis without intravenous contrast. CONTRAST: No IV contrast. COMPARISON: None provided. CT abdomen and pelvis without contrast 07/29/2022 FINDINGS: LUNG BASES: The lung bases appear clear. No pleural effusions are seen. LIVER: The contours of the liver are smooth. The liver is normal in size. There is small 4 mm dystrophic calcification within the right lobe of the liver. Unchanged GALLBLADDER AND BILE DUCTS: The gallbladder surgically absent.. No biliary ductal dilatation is evident. PANCREAS: Unremarkable. SPLEEN: Unremarkable. ADRENAL GLANDS: Unremarkable. KIDNEYS, URETERS, AND BLADDER: No significant change Staghorn calculus right kidney with marked right renal parenchymal atrophy and right-sided hydronephrosis versus multiple right renal cysts 1 mm nonobstructing renal stone within the intrapolar region of the left kidney. No left-sided hydronephrosis or perinephric abnormality. The course and caliber of the left ureter is normal. Unchanged 3 mm distal right ureteral stone STOMACH AND BOWEL: Unremarkable appearance of the stomach and bowel. No evidence of bowel obstruction. No evidence suggesting enteritis or colitis. APPENDIX: The appendix is not clearly visible. There are no secondary signs of acute appendicitis PERITONEUM: No free fluid. No free air. LYMPH NODES: No lymphadenopathy is evident. REPRODUCTIVE: Unremarkable as visualized. Unchanged left adnexal small cystic structure VASCULATURE: No evidence of abdominal aortic aneurysm. BONES: No aggressive appearing osseous lesion. No acute osseous pathology evident. IMPRESSION: 1. Unchanged right staghorn calculus with marked right renal parenchymal atrophy and hydronephrosis versus multiple renal cysts 2. Unchanged 3 mm distal right ureteral stone 3. 1 mm nonobstructing left renal stone, new compared with the prior exam. 4. Status post cholecystectomy 5. 4 mm right hepatic calcification 6. Unchanged left adnexal cyst /Crossnore
[2025-02-16] MEDS ORDERED: LEVO750T68 PO (16:23)
[2025-02-16 17:01] VITALS: BP 132/78; PULSE 98; RESP 18; TEMP 98.1; O2SAT 98
== END 2025-02-16 17:02 | disposition home or self-care (01) ==
LOC: EDH 13:40
DX: N39.0 Urinary tract infection, site not specified (principal); Z79.1 Long term (current) use of non-steroidal anti-inflammatories (NSAID); Z79.52 Long term (current) use of systemic steroids; Z79.899 Other long term (current) drug therapy; Z88.1 Allergy status to other antibiotic agents; Z90.49 Acquired absence of other specified parts of digestive tract; Z98.51 Tubal ligation status
CPT/HCPCS: 99285; 74176; 96365; 96375; 80048; 85025; 87086 ×2; 87186; 81001; 81025; 36415; J1885; J1956